=== PATIENT | male | born 1940 | race Caucasian/White ===

== ENCOUNTER 2018-11-13 13:47 | Observation (INO) ==
[2018-11-13 14:26] LABS: Basophils # 0.1 K/mcL (0.0-0.2); Basophils % 0.9 %; Eosinophils # 1.7 K/mcL (0.0-0.6); Hematocrit 33.3 % (37.5-50.1); Hemoglobin 10.8 g/dL (12.9-16.9); Immature Granulocytes % 0.2 % (0-4); Lymphocytes # 3.1 K/mcL (0.6-4.6); Lymphocytes % 25.4 %; Mean Corpuscular HGB Conc 32.4 g/dL (31.6-35.5); Mean Corpuscular Volume 95.7 fL (83.0-100.0); Monocytes # 1.7 K/mcL (0.0-1.3); Monocytes % 13.4 %; Neutrophils # 5.7 K/mcL (1.6-8.9); Platelet Count 803 K/mcL (140-400); Red Blood Count 3.48 M/mcL (4.19-5.50); Red Cell Distribution Width 14.6 % (11.5-14.5); Segmented Neutrophils % 46.1 %; White Blood Count 12.3 K/mcL (4.3-11.1)
[2018-11-13 14:36] LABS: INR 2.9; Prothrombin Time 32.7 Seconds (9.4-12.1)
[2018-11-13 14:39] LABS: Activated Partial Thrombo Time 54.1 Seconds (26.0-36.0)
[2018-11-13 14:43] LABS: Alanine Aminotransferase 17 Units/L (7-52); Albumin 3.9 g/dL (3.5-5.7); Albumin/Globulin Ratio 1.1 (1.1-2.2); Alkaline Phosphatase 45 Units/L (34-104); Aspartate Amino Transferase 28 Units/L (13-39); BUN/Creatinine Ratio 14 (6-26); Bilirubin,Direct 0.1 mg/dL (0.0-0.2); Bilirubin,Indirect 0.4 mg/dL (0.0-1.2); Bilirubin,Total 0.5 mg/dL (0.3-1.0); Blood Urea Nitrogen 17 mg/dL (8-23); Calcium 9.7 mg/dL (8.6-10.3); Carbon Dioxide 27 mEq/L (23-29); Chloride 100 mEq/L (98-107); Globulin 3.6 g/dL (2.4-3.5); Glucose 95 mg/dL (70-105); Lipase 30 Units/L (11-82); Osmolality,Calculated 283 (280-300); Sodium 136 mEq/L (136-145); Total Protein 7.5 g/dL (6.4-8.9); Troponin I 0.03 ng/mL (< 0.04); eGFR For African Americans > 60 (> 60); eGFR For Non-African Americans 57 (> 60)
--- NOTE | 2018-11-13 14:46 | Emergency Department Note ---
Disposition Clinical Impression: Chest pain Qualifiers: Chest pain type: unspecified Qualified Code(s): R07.9 - Chest pain, unspecified Disposition: Admitted As Inpatient Condition: Good Time of Disposition: 16:06 General Adult HPI - General Stated complaint: Chest Pain Time Seen by Provider: 11/13/18 13:48 Source: patient Mode of arrival: private vehicle Limitations: no limitations Nursing Notes Reviewed: Yes Vital Signs Reviewed: Yes - History of Present Illness HPI Narrative: 78-year-old male with a past medical history of 3 previous myocardial infarcti ons and a triple bypass that reports 2-3 days of chest pain that has been intermittent in nature and he describes as a heaviness. He states this is approximately 5 out of 10 in severity and is associated with some diaphoresis. He denies nausea, headache, vision changes. Patient states that he sees Dr. No at this hospital. Pain Scale: 1 - Related Data Home Medications Medication Instructions Recorded Confirmed Atorvastatin [Lipitor] 40 mg PO HS 02/20/15 08/03/15 Carvedilol [Coreg] 6.25 mg PO BID 02/20/15 08/03/15 Clopidogrel [Plavix] 75 mg PO DAILY 02/20/15 08/03/15 Furosemide [Lasix] 40 mg PO DAILY 02/20/15 08/03/15 Insulin Glargine [Lantus] 40 units SQ HS 02/20/15 08/03/15 Insulin LISPRO [Humalog] 12 - 20 unit SQ TID 02/20/15 08/03/15 Metformin [Glucophage] 1,000 mg PO BID 02/20/15 08/03/15 Omeprazole [PriLOSEC] 20 mg PO DAILY 02/20/15 08/03/15 Aspirin [Adult Low Dose Aspirin EC] 81 mg PO DAILY 07/01/15 08/03/15 Calcium Carbonate/Vitamin D3 1 each PO DAILY 07/01/15 08/03/15 [Calcium 600 + Vit D Tablet] Fenofibrate [Lofibra] 160 mg PO HS 07/01/15 08/03/15 Lisinopril 2.5 mg PO DAILY 07/01/15 08/03/15 Multivitamin [Multi-Day Vitamins] 1 each PO DAILY 07/01/15 08/03/15 [place]-3/Dha/Epa/Fish Oil [Fish Oil 3,000 mg PO DAILY 07/01/15 08/03/15 1,000 mg Softgel] Vit A/Vit C/Vit E/Zinc/Copper 1 each PO DAILY 07/01/15 08/03/15 [Preservision Areds Tablet] Previous Rx's Medication Instructions Recorded Ferrous Sulfate 325 mg PO BIDWM #60 tablet 07/30/15 Allergies Allergy/AdvReac Type Severity Reaction Status Date / Time No Known Allergies Allergy Verified 02/20/15 14:21 Review of Systems: In addition to that documented in the HPI above, the additional ROS was obtained: Constitutional: Denies fevers or chills Reports diaphoresis Eyes: Denies vision changes ENMT: Denies sore throat CV: Reports substernal chest heaviness Resp: Reports SOB GI: Denies vomiting or diarrhea, and dark or tarry stools : Denies painful urination MSK: Denies recent trauma Skin: Denies new rashes Neuro: Denies new numbness or tingling or weakness Endocrine: Denies unexpected weight loss Heme: Denies bleeding disorders Past Medical History - Past Medical History Attestation: Yes The following information was validated with the patient. Medical history: Reports: CHF, COPD, CVA, diabetes, GERD, hyperlipidemia, hypertension, myocardial infarction Surgical history: Reports: angioplasty/stent, coronary bypass (CABG), herniorrhaphy, splenectomy, other Psychiatric history: Reports: no psych history - Social History Smoking Status: Former smoker Smokeless Tobacco Status: No Alcohol use: Reports: none Drug use: Reports: none Physical Exam General: No acute distress. Well developed, well nourished. Head: atraumatic, normocephalic. ENT: No conjunctival injection, no scleral icterus. PERRLA. EOMI. Oropharynx non- erythematous. mucous membranes moist. Neuro: No focal deficits, no speech deficit, no facial droop, mentating well. Pulm: Lungs CTAB A/P. No wheezes, rales, ronchi. Cardio: RRR with systolic murmur. Chest not tender to palpation. Abd: Soft, non-distended. Normoactive bowel sounds. Non-tender to palpation. No guarding. Non rigid. Extremities: Radial pulses 2+ nadine, dorsalis pedis/posterior tibialis 1+ nadine. No LE edema. No cyanosis, clubbing. Skin: warm, dry, intact. No rashes. Psych: Appropriate mood and affect. Answers questions appropriately. Cooperative with exam. - General Limitations: no limitations General appearance: alert Course Vital Signs Temperature 98.2 F 11/13/18 13:52 Pulse Rate 87 11/13/18 13:52 Respiratory Rate 21 11/13/18 13:52 Blood Pressure 133/76 11/13/18 13:52 O2 Sat by Pulse Oximetry 94 11/13/18 13:52 Temperature 98.2 F 11/13/18 13:52 Pulse Rate 98 11/13/18 15:29 Respiratory Rate 20 11/13/18 15:29 Blood Pressure 136/77 11/13/18 15:29 O2 Sat by Pulse Oximetry 97 11/13/18 15:29 Oxygen Delivery Oxygen Delivery Room Air Medical Decision Making - MDM Narrative Medical decision making narrative: 78M with Pmhx of CAD with 3 previous MIs and CABG that presents with 3 days of chest pain that is intermittent in nature. He cannot state what alleviates or exacerbates it, but it is associated with diaphoresis, SOB. Will obtain chest pain workup to include chest x-ray, EKG, CBC, BMP, troponin. Given patient's history I suspect admission. Patient's EKG did show some changes however the comparison EKG is from 2016. El yves's initial troponin was negative, however given patient's history, age, heart score he would benefit from further workup as an inpatient. Patient was admitted to the hospitalist Dr. Richard. Patient was given an aspirin while he was in the department. Patient remained stable while he was in the department. Patient was given an opportunity to ask questions and all his concerns were addressed. Results of his workup her shared with him at bedside including any lab work or imaging. - Medical Records Medical records reviewed: Yes I reviewed the patient's medical records. - Lab Data Lab results reviewed: Yes I reviewed the patient's lab results. Result diagrams: 11/13/18 14:01 11/13/18 14:01 Lab Results 11/13/18 11/13/18 11/13/18 Range/Units 14:01 14: 14:01 WBC (4.3-11.1) K/mcL RBC (4.19-5.50) M/mcL Hgb (12.9-16.9) g/dL Hct (37.5-50.1) % MCV (83.0-100.0) fL MCH (28.0-33.3) pg MCHC (31.6-35.5) g/dL RDW (11.5-14.5) % Plt Count (140-400) K/mcL MPV (9.4-12.4) fL Immature Gran % (0-4) % Seg Neutrophils % % Lymphocytes % % Monocytes % % Eosinophils % % Basophils % % Neutrophils # (1.6-8.9) K/mcL Lymphocytes # (0.6-4.6) K/mcL Monocytes # (0.0-1.3) K/mcL Eosinophils # (0.0-0.6) K/mcL Basophils # (0.0-0.2) K/mcL PT 32.7 H (9.4-12.1) Seconds INR 2.9 APTT 54.1 H (26.0-36.0) Seconds Sodium 136 (136-145) mEq/L Potassium 4.0 (3.5-5.1) mEq/L Chloride 100 (98-107) mEq/L Carbon Dioxide 27 (23-29) mEq/L BUN 17 (8-23) mg/dL Creatinine 1.23 (0.70-1.30) mg/dL Est GFR ( Amer) > 60 (> 60) Est GFR (Non-Af Amer) 57 L (> 60) BUN/Creatinine Ratio 14 (6-26) Glucose 95 (70-105) mg/dL Calculated Osmolality 283 (280-300) Calcium 9.7 (8.6-10.3) mg/dL Total Bilirubin 0.5 (0.3-1.0) mg/dL Direct Bilirubin 0.1 (0.0-0.2) mg/dL Indirect Bilirubin 0.4 (0.0-1.2) mg/dL AST 28 (13-39) Units/L ALT 17 (7-52) Units/L Alkaline Phosphatase 45 (34-104) Units/L Troponin I 0.03 (< 0.04) ng/mL B-Natriuretic Peptide 365 H (Less than 100) pg/mL Serum Total Protein 7.5 (6.4-8.9) g/dL Albumin 3.9 (3.5-5.7) g/dL Globulin 3.6 H (2.4-3.5) g/dL Albumin/Globulin Ratio 1.1 (1.1-2.2) Lipase 30 (11-82) Units/L 11/13/18 Range/Units 14:01 WBC 12.3 H (4.3-11.1) K/mcL RBC 3.48 L (4.19-5.50) M/mcL Hgb 10.8 L (12.9-16.9) g/dL Hct 33.3 L (37.5-50.1) % MCV 95.7 (83.0-100.0) fL MCH 31.0 (28.0-33.3) pg MCHC 32.4 (31.6-35.5) g/dL RDW 14.6 H (11.5-14.5) % Plt Count 803 H (140-400) K/mcL MPV 10.0 (9.4-12.4) fL Immature Gran % 0.2 (0-4) % Seg Neutrophils % 46.1 % Lymphocytes % 25.4 % Monocytes % 13.4 % Eosinophils % 14.0 % Basophils % 0.9 % Neutrophils # 5.7 (1.6-8.9) K/mcL Lymphocytes # 3.1 (0.6-4.6) K/mcL Monocytes # 1.7 H (0.0-1.3) K/mcL Eosinophils # 1.7 H (0.0-0.6) K/mcL Basophils # 0.1 (0.0-0.2) K/mcL PT (9.4-12.1) Seconds INR APTT (26.0-36.0) Seconds Sodium (136-145) mEq/L Potassium (3.5-5.1) mEq/L Chloride (98-107) mEq/L Carbon Dioxide (23-29) mEq/L BUN (8-23) mg/dL Creatinine (0.70-1.30) mg/dL Est GFR ( Amer) (> 60) Est GFR (Non-Af Amer) (> 60) BUN/Creatinine Ratio (6-26) Glucose (70-105) mg/dL Calculated Osmolality (280-300) Calcium (8.6-10.3) mg/dL Total Bilirubin (0.3-1.0) mg/dL Direct Bilirubin (0.0-0.2) mg/dL Indirect Bilirubin (0.0-1.2) mg/dL AST (13-39) Units/L ALT (7-52) Units/L Alkaline Phosphatase (34-104) Units/L Troponin I (< 0.04) ng/mL B-Natriuretic Peptide (Less than 100) pg/mL Serum Total Protein (6.4-8.9) g/dL Albumin (3.5-5.7) g/dL Globulin (2.4-3.5) g/dL Albumin/Globulin Ratio (1.1-2.2) Lipase (11-82) Units/L - Radiology Data Radiology results reviewed: Yes I reviewed the patient's radiology results. Chest X-Ray 11/13/18 13:56 IMPRESSION: [id number] right pleural effusion and trace left pleural effusion. Mild bibasilar likely atelectasis. Stable cardiomegaly. D/ / 11/13/2018 14:13:35 Jose Alejandro Valladares MD / [facility] Interpreting Provider: Jose Alejandro Valladares MD - EKG Data EKG #1 EKG attestation: Yes I reviewed and interpreted this EKG. EKG results narrative: Heart rate 95, rhythm sinus, axis normal. He will 151, QRS 118 and borderline prolonged, QTC 497 and borderline prolonged. Less than [address] elevation in leads V2, V3. With ST depression in lead V4 and V5. These are new changes when compared with EKG from 08/30/2015. Patient meets criteria for LVH.
--- NOTE | 2018-11-13 16:12 | Emergency Department Note ---
Disposition Clinical Impression: Chest pain Qualifiers: Chest pain type: unspecified Qualified Code(s): R07.9 - Chest pain, unspecified Disposition: Admitted As Inpatient Referrals: Niles Sevilla MD [Primary Care Provider] - Time of Disposition: 16:11 General Adult HPI - General Chief complaint: ED Chest Pain Stated complaint: Chest Pain Time Seen by Provider: 11/13/18 13:48 Source: patient Mode of arrival: private vehicle Limitations: no limitations - History of Present Illness Pain Scale: 0 - Related Data Home Medications Medication Instructions Recorded Confirmed Atorvastatin [Lipitor] 40 mg PO HS 02/20/15 08/03/15 Carvedilol [Coreg] 6.25 mg PO BID 02/20/15 08/03/15 Clopidogrel [Plavix] 75 mg PO DAILY 02/20/15 08/03/15 Furosemide [Lasix] 40 mg PO DAILY 02/20/15 08/03/15 Insulin Glargine [Lantus] 40 units SQ HS 02/20/15 08/03/15 Insulin LISPRO [Humalog] 12 - 20 unit SQ TID 02/20/15 08/03/15 Metformin [Glucophage] 1,000 mg PO BID 02/20/15 08/03/15 Omeprazole [PriLOSEC] 20 mg PO DAILY 02/20/15 08/03/15 Aspirin [Adult Low Dose Aspirin EC] 81 mg PO DAILY 07/01/15 08/03/15 Calcium Carbonate/Vitamin D3 1 each PO DAILY 07/01/15 08/03/15 [Calcium 600 + Vit D Tablet] Fenofibrate [Lofibra] 160 mg PO HS 07/01/15 08/03/15 Lisinopril 2.5 mg PO DAILY 07/01/15 08/03/15 Multivitamin [Multi-Day Vitamins] 1 each PO DAILY 07/01/15 08/03/15 [place]-3/Dha/Epa/Fish Oil [Fish Oil 3,000 mg PO DAILY 07/01/15 08/03/15 1,000 mg Softgel] Vit A/Vit C/Vit E/Zinc/Copper 1 each PO DAILY 07/01/15 08/03/15 [Preservision Areds Tablet] Previous Rx's Medication Instructions Recorded Ferrous Sulfate 325 mg PO BIDWM #60 tablet 07/30/15 Allergies Allergy/AdvReac Type Severity Reaction Status Date / Time No Known Allergies Allergy Verified 02/20/15 14:21 Past Medical History - Past Medical History Medical history: Reports: CHF, COPD, CVA, diabetes, GERD, hyperlipidemia, hypertension, myocardial infarction Surgical history: Reports: angioplasty/stent, coronary bypass (CABG), herniorrhaphy, splenectomy, other Psychiatric history: Reports: no psych history - Social History Smoking Status: Former smoker Smokeless Tobacco Status: No Alcohol use: Reports: none Drug use: Reports: none Physical Exam - General Limitations: no limitations General appearance: alert Course Vital Signs Temperature 98.2 F 11/13/18 13:52 Pulse Rate 87 11/13/18 13:52 Respiratory Rate 21 11/13/18 13:52 Blood Pressure 133/76 11/13/18 13:52 O2 Sat by Pulse Oximetry 94 11/13/18 13:52 Temperature 98.2 F 11/13/18 13:52 Pulse Rate 98 11/13/18 15:29 Respiratory Rate 20 11/13/18 15:29 Blood Pressure 136/77 11/13/18 15:29 O2 Sat by Pulse Oximetry 97 11/13/18 15:29 Oxygen Delivery Oxygen Delivery Room Air Medical Decision Making - Lab Data Result diagrams: 11/13/18 14:01 11/13/18 14:01 Lab Results 11/13/18 11/13/18 11/13/18 Range/Units 14:01 14:01 14:01 WBC (4.3-11.1) K/mcL RBC (4.19-5.50) M/mcL Hgb (12.9-16.9) g/dL Hct (37.5-50.1) % MCV (83.0-100.0) fL MCH (28.0-33.3) pg MCHC (31.6-35.5) g/dL RDW (11.5-14.5) % Plt Count (140-400) K/mcL MPV (9.4-12.4) fL Immature Gran % (0-4) % Seg Neutrophils % % Lymphocytes % % Monocytes % % Eosinophils % % Basophils % % Neutrophils # (1.6-8.9) K/mcL Lymphocytes # (0.6-4.6) K/mcL Monocytes # (0.0-1.3) K/mcL Eosinophils # (0.0-0.6) K/mcL Basophils # (0.0-0.2) K/mcL PT 32.7 H (9.4-12.1) Seconds INR 2.9 APTT 54.1 H (26.0-36.0) Seconds Sodium 136 (136-145) mEq/L Potassium 4.0 (3.5-5.1) mEq/L Chloride 100 (98-107) mEq/L Carbon Dioxide 27 (23-29) mEq/L BUN 17 (8-23) mg/dL Creatinine 1.23 (0.70-1.30) mg/dL Est GFR ( Amer) > 60 (> 60) Est GFR (Non-Af Amer) 57 L (> 60) BUN/Creatinine Ratio 14 (6-26) Glucose 95 (70-105) mg/dL Calculated Osmolality 283 (280-300) Calcium 9.7 (8.6-10.3) mg/dL Total Bilirubin 0.5 (0.3-1.0) mg/dL Direct Bilirubin 0.1 (0.0-0.2) mg/dL Indirect Bilirubin 0.4 (0.0-1.2) mg/dL AST 28 (13-39) Units/L ALT 17 (7-52) Units/L Alkaline Phosphatase 45 (34-104) Units/L Troponin I 0.03 (< 0.04) ng/mL B-Natriuretic Peptide 365 H (Less than 100) pg/mL Serum Total Protein 7.5 (6.4-8.9) g/dL Albumin 3.9 (3.5-5.7) g/dL Globulin 3.6 H (2.4-3.5) g/dL Albumin/Globulin Ratio 1.1 (1.1-2.2) Lipase 30 (11-82) Units/L 11/13/18 Range/Units 14:01 WBC 12.3 H (4.3-11.1) K/mcL RBC 3.48 L (4.19-5.50) M/mcL Hgb 10.8 L (12.9-16.9) g/dL Hct 33.3 L (37.5-50.1) % MCV 95.7 (83.0-100.0) fL MCH 31.0 (28.0-33.3) pg MCHC 32.4 (31.6-35.5) g/dL RDW 14.6 H (11.5-14.5) % Plt Count 803 H (140-400) K/mcL MPV 10.0 (9.4-12.4) fL Immature Gran % 0.2 (0-4) % Seg Neutrophils % 46.1 % Lymphocytes % 25.4 % Monocytes % 13.4 % Eosinophils % 14.0 % Basophils % 0.9 % Neutrophils # 5.7 (1.6-8.9) K/mcL Lymphocytes # 3.1 (0.6-4.6) K/mcL Monocytes # 1.7 H (0.0-1.3) K/mcL Eosinophils # 1.7 H (0.0-0.6) K/mcL Basophils # 0.1 (0.0-0.2) K/mcL PT (9.4-12.1) Seconds INR APTT (26.0-36.0) Seconds Sodium (136-145) mEq/L Potassium (3.5-5.1) mEq/L Chloride (98-107) mEq/L Carbon Dioxide (23-29) mEq/L BUN (8-23) mg/dL Creatinine (0.70-1.30) mg/dL Est GFR ( Amer) (> 60) Est GFR (Non-Af Amer) (> 60) BUN/Creatinine Ratio (6-26) Glucose (70-105) mg/dL Calculated Osmolality (280-300) Calcium (8.6-10.3) mg/dL Total Bilirubin (0.3-1.0) mg/dL Direct Bilirubin (0.0-0.2) mg/dL Indirect Bilirubin (0.0-1.2) mg/dL AST (13-39) Units/L ALT (7-52) Units/L Alkaline Phosphatase (34-104) Units/L Troponin I (< 0.04) ng/mL B-Natriuretic Peptide (Less than 100) pg/mL Serum Total Protein (6.4-8.9) g/dL Albumin (3.5-5.7) g/dL Globulin (2.4-3.5) g/dL Albumin/Globulin Ratio (1.1-2.2) Lipase (11-82) Units/L Attestation Statement - Attestation Attestation: I reviewed the residents documentation and agree with the residents assessment and plan of care. I have personally had face to face time with the patient. (Brief History, Brief Exam, and MDM) I personally supervised and was present for the kaplan/critical portions of the following procedures completed by the resident: EKG 78 year old male presents ot the ED with complaints of camilo pain and has multiple stents and currently feels as though thsi is simlair to his cardiac pains int he past and is now experiencing exertional dyspnea. troponing negative, no new ishcemic changes on ekg. ASA and admit to medicine.
--- NOTE | 2018-11-13 16:18 | Internal Med History&Physical ---
<Nidia Osei - Last Filed: 11/13/18 18:53> Date of Encounter: 11/13/18 Internal Medicine - H&P: HPI History of present illness: Mr. Bridges is a 78 year old male Past Med Surg Social Fam HX - Family History Mother Hx Family Cardiac Disorders: Yes Internal Medicine - H&P: Meds Insulin LISPRO [Humalog] 12 - 20 unit SQ TID 02/20/15 [History] Lisinopril 2.5 mg PO DAILY 07/01/15 [History] [place]-3/Dha/Epa/Fish Oil [Fish Oil 1,000 mg Softgel] 2,400 mg PO QAM 07/01/15 [History] Vit A/Vit C/Vit E/Zinc/Copper [Preservision Areds Tablet] 1 each PO BID 07/01/15 [History] Aspirin [Lo-Dose Aspirin EC] 81 mg PO DAILY 11/13/18 [History] Atorvastatin Calcium [Lipitor] 80 mg PO HS 11/13/18 [History] Calcium Carbonate/Vitamin D3 [Calcium 600 + Vit D Softgel] 1 each PO BID 11/13/18 [History] Carvedilol [Coreg] 6.25 mg PO BID 11/13/18 [History] Cholecalciferol (Vitamin D3) [Vitamin D] 1,000 unit PO DAILY 11/13/18 [History] Cyanocobalamin (Vitamin B-12) [Vitamin B-12] 1,000 mcg PO DAILY 11/13/18 [History] Fenofibrate Nanocrystallized [Fenofibrate] 160 mg PO DAILY 11/13/18 [History] Ferrous Sulfate 325 mg PO BIDWM 11/13/18 [History] Furosemide [Lasix] 40 mg PO DAILY 11/13/18 [History] Insulin Glargine,Hum.rec.anlog [Basaglar Kwikpen U-100] 30 unit SQ HS 11/13/18 [History] Metformin HCl 1,000 mg PO BID 11/13/18 [History] Multivitamin [One Daily Essential] 1 tab PO DAILY 11/13/18 [History] [place]-3/Dha/Epa/Dpa/Fish Oil [[place]-3 1,050 mg Softgel] 1,200 each PO HS 11/13/18 [History] Omeprazole 40 mg PO DAILY 11/13/18 [History] Ranolazine [Ranolazine ER] 500 mg PO BID 11/13/18 [History] Warfarin [Coumadin] 2.5 mg PO Q48H 11/13/18 [History] Warfarin [Coumadin] 5 mg PO Q48H 11/13/18 [History] Allergy/AdvReac Type Severity Reaction Status Date / Time No Known Allergies Allergy Verified 11/13/18 21:44 All Systems PM: A 10-system review of systems was performed and is negative for pertinent findings except as documented above in the HPI. - Constitutional Vitals: Temp Pulse Resp BP Pulse Ox 98.2 F 90 16 145/76 93 11/13/18 18:45 11/13/18 18:45 11/13/18 18:45 11/13/18 18:45 11/13/18 18:45 Internal Med - H&P Results - Labs CBC & Chem 7: 11/13/18 14:01 11/13/18 14:01 Labs: Short CBC 11/13/18 Range/Units 14:01 WBC 12.3 H (4.3-11.1) K/mcL Hgb 10.8 L (12.9-16.9) g/dL Hct 33.3 L (37.5-50.1) % Plt Count 803 H (140-400) K/mcL Neutrophils # 5.7 (1.6-8.9) K/mcL BMP 11/13/18 14:01 Sodium 136 Potassium 4.0 Chloride 100 Carbon Dioxide 27 BUN 17 Creatinine 1.23 Glucose 95 Calcium 9.7 Cardiac Enzymes 11/13/18 Range/Units 14:01 Troponin I 0.03 (< 0.04) ng/mL Liver Function 11/13/18 Range/Units 14:01 Total Bilirubin 0.5 (0.3-1.0) mg/dL Direct Bilirubin 0.1 (0.0-0.2) mg/dL AST 28 (13-39) Units/L ALT 17 (7-52) Units/L Alkaline Phosphatase 45 (34-104) Units/L Albumin 3.9 (3.5-5.7) g/dL - Impressions ITS Impressions Chest X-Ray 11/13/18 13:56 IMPRESSION: Nmnpq-jj-jegjkual right pleural effusion and trace left pleural effusion. Mild bibasilar likely atelectasis. Stable cardiomegaly. 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 (2) Chest pain Current Visit: Yes Status: Acute Qualifiers: Chest pain type: unspecified Qualified Code(s): R07.9 - Chest pain, unspecified (3) DM2 (diabetes mellitus, type 2) Current Visit: Yes Status: Chronic Qualifiers: Diabetes mellitus senior living insulin use: unspecified senior living insulin use status Diabetes mellitus complication status: without complication Qualified Code(s): E11.9 - Type 2 diabetes mellitus without complications (4) CHF (congestive heart failure) Current Visit: Yes Status: Chronic Qualifiers: Heart failure type: unspecified Heart failure chronicity: chronic Qualified Code(s): I50.9 - Heart failure, unspecified (5) HLD (hyperlipidemia) Current Visit: Yes Status: Chronic Qualifiers: Hyperlipidemia type: unspecified Qualified Code(s): E78.5 - Hyperlipidemia, unspecified (6) GERD (gastroesophageal reflux disease) Current Visit: Yes Status: Chronic Qualifiers: Esophagitis presence: esophagitis presence not specified Qualified Code(s): K21.9 - Gastro-esophageal reflux disease without esophagitis (7) Hx of deep venous thrombosis Current Visit: Yes Status: Chronic (8) DVT prophylaxis Current Visit: Yes Status: Acute (9) Leukocytosis Current Visit: Yes Status: Acute Qualifiers: Leukocytosis type: unspecified Qualified Code(s): D72.829 - Elevated white blood cell count, unspecified - Time Spent With Patient Total time spent is greater than 50% in coordination of care (as documented) at patient's floor/unit and/or counseling patient: - Attending Attestation I saw evaluated and examined this patient and reviewed objective data including labs and my medical decision-making was reviewed with the Resident Physician/Medical Student. I agree with the documented findings, disposition and treatment plan as described except to any changes set forth below. We independently had ejtf-ds-bpxq contact with the patient. <Hima Champion - Last Filed: 11/13/18 22:52> Date of Encounter: 11/13/18 Time of Encounter: 17:00 Internal Medicine - H&P: HPI Chief complaint: chest pain Admitted From: Home History of present illness: Mr. Bridges is a 78 year old male with PMH of CAD s/p CABG and stents, CHF, hx of DVTs on Coumadin, GERD, HLD, and HTN. He presented to the [facility] ED today complaining of intermittent chest pain of 2 days duration. States the rendon is a dull pressure and is located in 3 separate locations on his chest without radiation of the pain. States the pressure is most intense in the mid-sternum, but is also in the right upper chest, and lateral left chest. Unable to identify exacerbating or relieving factors. Denies any shortness of breath, fever, chills, cough, or increased congestion. Pt's is at bedside and does report the patient has significant diaphoresis whenever he sleeps. Pt does then admit there was a night within the last two weeks where he woke up and was genuinely concerned his threw a bucket of water on him due to the intense diaphoresis. He denies any nausea, or vomiting. Vital signs on presentation in the ED as follows: Temp 98.2 HR 87 RR 21 BP 133/76 SpO2 94% on room air Labs from the ED were significant for slight leukocytosis with WBC 12.3, Hgb 10.8, platelets 803K, INR 2.9, and BNP elevated at 365. Initial troponin was 0.03. An EKG demonstrated less than [address] elevation in leads V2, V3, with ST depression in lead V4 and V5, and LVH. These are new changes when compared with EKG from 08/30/2015 which is the most recent EKG on record at our facility. CXR from the ED demonstrated a jdlus-gi-zjsygmuc right pleural effusion and trace left pleural effusion, mild bibasilar likely atelectasis, and stable cardiomegaly. Due to the patient's cardiac history, the patient was admitted for further evaluation and workup of his chest pain. Past Med Surg Social Fam HX - Past Medical History Attestation: Yes The following information was validated with the patient. Source: patient, old records reviewed, nursing notes reviewed Medical history: CHF, COPD, CVA, DVT, diabetes, GERD, hyperlipidemia, hypertension, myocardial infarction Psychiatric history: no psych history - Past Surgical History Surgical History: angioplasty/stent, coronary bypass (CABG), herniorrhaphy, splenectomy, other Additional surgical history: Rt carpal tunnel release - Social History Smoking Status: Former smoker Smokeless Tobacco Status: No Alcohol use: none Drug use: none All Systems PM: A 10-system review of systems was performed and is negative for pertinent findings except as documented above in the HPI. - Constitutional Constitutional: night sweats, no chills, no fever(s) - EENT Eyes: no blurry vision, no change in vision Nose, mouth and throat: no sinus pain, no sinus pressure - Cardiovascular Cardiovascular ROS IM: chest pain, no dyspnea, no dyspnea on exertion - Respiratory Respiratory: no dyspnea, no wheezing, no chest congestion, no excessive phlegm production - Gastrointestinal Gastrointestinal: no abdominal pain, no nausea, no vomiting - Musculoskeletal Musculoskeletal ROS IM: no arthralgias, no myalgias, no numbness, no tingling - Integumentary Integumentary IM: no erythema, no new lesions - Neurological Neurological ROS: no confusion, no numbness, no tingling, no weakness - Hematologic/Lymphatic Hematologic/Lymphatic: no easy bleeding, no easy bruising - Constitutional Vitals: Temp Pulse Resp BP Pulse Ox 98.2 F 98 20 136/77 97 11/13/18 13:52 11/13/18 15:29 11/13/18 15:29 11/13/18 15:29 11/13/18 15:29 General appearance: Present: cooperative, A&O X 3, pleasant, no acute distress, answers questions appropriately Exam: General: well developed male in no acute distress Head: NCAT Eyes: PERRL, EOMI, sclera anicteric Neck: supple, trachea midline Lungs: CTA bilaterally. Non-labored breathing. No wheezes, rales, or rhonchi Heart: RRR +S1 +s2 No clicks, murmurs, rubs, or gallops GI: abdomen soft, non-tender, non-distended Extremities: warm, radial pulses palpable and symmetrical. No edema, cynosis, or calf tenderness. Neuro: A&Ox3. No focal deficits. No speech difficulty or abnormality Skin: warm, dry, intact. No diaphoresis. Internal Med - H&P Results - Labs CBC & Chem 7: 11/13/18 14:01 11/13/18 14:01 Labs: Short CBC 11/13/18 Range/Units 14:01 WBC 12.3 H (4.3-11.1) K/mcL Hgb 10.8 L (12.9-16.9) g/dL Hct 33.3 L (37.5-50.1) % Plt Count 803 H (140-400) K/mcL Neutrophils # 5.7 (1.6-8.9) K/mcL BMP 11/13/18 14:01 Sodium 136 Potassium 4.0 Chloride 100 Carbon Dioxide 27 BUN 17 Creatinine 1.23 Glucose 95 Calcium 9.7 Cardiac Enzymes 11/13/18 Range/Units 14:01 Troponin I 0.03 (< 0.04) ng/mL Liver Function 11/13/18 Range/Units 14:01 Total Bilirubin 0.5 (0.3-1.0) mg/dL Direct Bilirubin 0.1 (0.0-0.2) mg/dL AST 28 (13-39) Units/L ALT 17 (7-52) Units/L Alkaline Phosphatase 45 (34-104) Units/L Albumin 3.9 (3.5-5.7) g/dL - EKG Data -: EKG Interpreted by Myself EKG shows normal: sinus rhythm - EKG Data Prior EKG available for review: yes When compared to previous EKG: there are significant changes - Impressions ITS Impressions Chest X-Ray 11/13/18 13:56 IMPRESSION: Wcfhn-wa-jqdkncvy right pleural effusion and trace left pleural effusion. Mild bibasilar likely atelectasis. Stable cardiomegaly. D/ / 11/13/2018 14:13:35 Jose Alejandro Valladares MD / [facility] Interpreting Provider: Jose Alejandro Valladares MD - Assessment and Plan (1) Chest pain Current Visit: Yes Status: Acute Assessment and plan: Presented with complaints of intermittent chest pressure Hx of CAD and is s/p stents and CABG EKG from the ED demonstrated non-specific changes when compared to previous EKG from 2016 CXR from the ED showed daybi-ea-gdznwvll right pleural effusion and trace left pleural effusion, mild bibasilar likely atelectasis, and stable cardiomegaly. Initial troponin 0.03 Heart score of 6 which is suggestive of risk of MACE 12-16.6% in 6 weeks Plan: Trend troponins Obtain echocardiogram Obtain nuclear stress test Repeat EKG in the AM Continue ASA, statin, and Coreg Also continue home Ranolazine Consider cardiology consult for abnormal results. Pt has followed with Dr No in [place] previously Qualifiers: Chest pain type: unspecified Qualified Code(s): R07.9 - Chest pain, unspecified (2) Leukocytosis Current Visit: Yes Status: Acute Assessment and plan: Mild leukocytosis with WBC of 12.3 from labs in ED Low suspicion of infectious etiology at this time given history and clinical picture, but will continue to monitor Qualifiers: Leukocytosis type: unspecified Qualified Code(s): D72.829 - Elevated white blood cell count, unspecified (3) Thrombocytosis after splenectomy Current Visit: Yes Status: Chronic Assessment and plan: Platelets of 803K on labs from ED On review of patient's chart this appears chronic in nature with elevated platelets of 520K as far back as 05/19/2014 Continue to monitor (4) DM2 (diabetes mellitus, type 2) Current Visit: Yes Status: Chronic Assessment and plan: Hx of DM2 On insulin at home Blood glucose of 95 on BMP from the ED SSI ACHS with accuchecks Continue home dose of basal insulin at this time Continue to monitor Qualifiers: Diabetes mellitus senior living insulin use: unspecified watermelon inspector insulin use status Diabetes mellitus complication status: without complication Qualified Code(s): E11.9 - Type 2 diabetes mellitus without complications (5) CHF (congestive heart failure) Current Visit: Yes Status: Chronic Assessment and plan: Does not appear to be in acute exacerbation Continue to monitor fluid status Continue home Lasix Qualifiers: Heart failure type: unspecified Heart failure chronicity: chronic Qualified Code(s): I50.9 - Heart failure, unspecified (6) HLD (hyperlipidemia) Current Visit: Yes Status: Chronic Assessment and plan: continue home statin Qualifiers: Hyperlipidemia type: unspecified Qualified Code(s): E78.5 - Hyperlipidemia, unspecified (7) GERD (gastroesophageal reflux disease) Current Visit: Yes Status: Chronic Assessment and plan: Continue home Omeprazole Qualifiers: Esophagitis presence: esophagitis presence not specified Qualified Code(s): K21.9 - Gastro-esophageal reflux disease without esophagitis (8) Hx of deep venous thrombosis Current Visit: Yes Status: Chronic Assessment and plan: On Coumadin at home INR from the ED was 2.9 Continue Coumadin with pharmacy assistance with dosing (9) DVT prophylaxis Current Visit: Yes Status: Acute Assessment and plan: coumadin as above - Time Spent With Patient Total time spent is greater than 50% in coordination of care (as documented) at patient's floor/unit and/or counseling patient:
[2018-11-13] MEDS: Aspirin 325 MG TABLET PO ONE ×2 (16:48→16:49)
[2018-11-13] MEDS ORDERED: Naloxone 0.4 MG/ML INJ IVP PRN (16:57)
[2018-11-13] MEDS ORDERED: *HR* Dextrose 50 % in Water (Syg) 50 ML SYRINGE IVP PRN (16:59)
[2018-11-13] MEDS ORDERED: D5% in Water 1,000 ML IVC PRN (16:59)
[2018-11-13] MEDS ORDERED: Dextrose Gel 15 GM/37.5 ML TUBE PO PRN ×2 (16:59)
[2018-11-13] MEDS ORDERED: *HR* Warfarin 5 MG TABLET PO ONE (18:00)
[2018-11-13] MEDS ORDERED: Warfarin perPT PO PRN (18:00)
[2018-11-13] MEDS: Insulin LISPRO 300 UNITS/3 ML VIAL SQ SCH (20:55)
[2018-11-13] MEDS ORDERED: Insulin DETEMIR 100 UNIT/ML X5UNITS SQ SCH (21:00)
[2018-11-13] MEDS ORDERED: Perflutren Lipid Microsphere 1.3 ML in 0.9 % Sodium Chloride 8.7 ML IVP ONE (21:03)
[2018-11-13] MEDS: Insulin DETEMIR 100 UNIT/ML X5UNITS SQ SCH (22:51)
[2018-11-14 02:55] LABS: Basophils # 0.1 K/mcL (0.0-0.2); Basophils % 1.1 %; Eosinophils % 16.7 %; Hematocrit 32.4 % (37.5-50.1); Hemoglobin 10.8 g/dL (12.9-16.9); Immature Granulocytes % 0.4 % (0-4); Lymphocytes # 2.9 K/mcL (0.6-4.6); Lymphocytes % 24.4 %; Mean Corpuscular HGB Conc 33.3 g/dL (31.6-35.5); Mean Corpuscular Volume 93.1 fL (83.0-100.0); Mean Platelet Volume 9.8 fL (9.4-12.4); Monocytes # 1.5 K/mcL (0.0-1.3); Monocytes % 12.3 %; Neutrophils # 5.4 K/mcL (1.6-8.9); Platelet Count 838 K/mcL (140-400); Red Blood Count 3.48 M/mcL (4.19-5.50); Red Cell Distribution Width 14.6 % (11.5-14.5); Segmented Neutrophils % 45.1 %
[2018-11-14 03:02] LABS: INR 3.1; Prothrombin Time 34.8 Seconds (9.4-12.1)
[2018-11-14 03:12] LABS: BUN/Creatinine Ratio 13 (6-26); Blood Urea Nitrogen 17 mg/dL (8-23); Calcium 9.6 mg/dL (8.6-10.3); Carbon Dioxide 26 mEq/L (23-29); Chloride 101 mEq/L (98-107); Glucose 111 mg/dL (70-105); Magnesium 1.6 mg/dL (1.6-2.6); Osmolality,Calculated 282 (280-300); Phosphorous 3.5 mg/dL (2.7-4.5); Potassium 3.8 mEq/L (3.5-5.1); Sodium 135 mEq/L (136-145); eGFR For African Americans > 60 (> 60); eGFR For Non-African Americans 54 (> 60)
[2018-11-14] MEDS ORDERED: Regadenoson 0.4 MG/5 ML SYRINGE IVP ONE (06:01)
--- NOTE | 2018-11-14 08:57 | Internal Med Progress Note ---
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 Current Visit: Yes Status: Chronic (2) Chest pain Current Visit: Yes Status: Acute (3) DM2 (diabetes mellitus, type 2) Current Visit: Yes Status: Chronic (4) CHF (congestive heart failure) Current Visit: Yes Status: Chronic (5) HLD (hyperlipidemia) Current Visit: Yes Status: Chronic (6) GERD (gastroesophageal reflux disease) Current Visit: Yes Status: Chronic (7) Hx of deep venous thrombosis Current Visit: Yes Status: Chronic (8) DVT prophylaxis Current Visit: Yes Status: Acute (9) Leukocytosis Current Visit: Yes Status: Acute - Time Spent with Patient Total time spent is greater than 50% in coordination of care (as documented) at patient's floor/unit and/or counseling patient: Internal Medicine: Result - Labs CBC & Chem 7: 11/14/18 02:28 11/14/18 02:28 Labs: Short CBC 11/14/18 Range/Units 02:28 WBC 12.0 H (4.3-11.1) K/mcL Hgb 10.8 L (12.9-16.9) g/dL Hct 32.4 L (37.5-50.1) % Plt Count 838 H (140-400) K/mcL Neutrophils # 5.4 (1.6-8.9) K/mcL BMP 11/13/18 11/14/18 14:01 02:28 Sodium 136 135 L Potassium 4.0 3.8 Chloride 100 101 Carbon Dioxide 27 26 BUN 17 17 Creatinine 1.23 1.29 Glucose 95 111 H Calcium 9.7 9.6 Cardiac Enzymes 11/13/18 11/13/18 11/14/18 Range/Units 14:01 21:38 02:28 Troponin I 0.03 0.03 0.03 (< 0.04) ng/mL Liver Function 11/13/18 Range/Units 14:01 Total Bilirubin 0.5 (0.3-1.0) mg/dL Direct Bilirubin 0.1 (0.0-0.2) mg/dL AST 28 (13-39) Units/L ALT 17 (7-52) Units/L Alkaline Phosphatase 45 (34-104) Units/L Albumin 3.9 (3.5-5.7) g/dL - ABG Interpretation ABG results: PT/INR, D-dimer PT 34.8 Seconds (9.4-12.1) H 11/14/18 02:28 - Impressions Impressions Chest X-Ray 11/13/18 13:56 IMPRESSION: Uqxzu-nw-eubwsrbd right pleural effusion and trace left pleural effusion. Mild bibasilar likely atelectasis. Stable cardiomegaly. D/ / 11/13/2018 14:13:35 Jose Alejandro Valladares MD / [facility] Interpreting Provider: Jose Alejandro Valladares MD Consult Discharge Plan - Plan Referrals: Niles Sevilla MD [Primary Care Provider] - - Attending Attestation I saw evaluated and examined this patient and reviewed objective data including labs and my medical decision-making was reviewed with the Resident Ph ysician/Medical Student. I agree with the documented findings, disposition and treatment plan as described except to any changes set forth below. We independently had eiph-uo-paly contact with the patient. No acute events overnight. Denies any CP, SOB, palpitations, diaphoresis at this time. VS: reviewed. Labs; reviewed, troponin unchanged. Patient completed Echocardiogram yesterday and Nuc stress today, results pending. <Sallie Campos - Last Filed: 11/14/18 16:22> Hospitalist Progress Note - Encounter Date of Encounter: 11/14/18 Time of Encounter: 10:00 - Subjective Interval History: Kristine Bridges is a 78-year-old male initially presented with chest pain Patient seen and examined at bedside today. He is states he is doing much better. He states that he has not had any chest pain since yesterday. He d enies any shortness of breath, cough, congestion, abdominal pain, nausea, vomiting, diarrhea, weakness. - Exam Vitals: Temp Pulse Resp BP Pulse Ox 98.7 F 85 19 149/84 92 11/14/18 06:51 11/14/18 06:51 11/14/18 06:51 11/14/18 06:51 11/14/18 06:51 Exam: General: AAO 3, no acute distress, answers questions appropriately Head: normocephalic, atraumatic Eyes: MIKI, no icterus Cardio: RRR, no murmurs, rubs, or gallops Respiratory: CTAB, no wheezing, rhonchi, rales Abd: normal bowel sounds, no guarding or rigidity Extremities: no pedal edema, pulses equal bilaterally, warm Skin: warm, dry, intact - Assessment and Plan (1) Chest pain Current Visit: Yes Status: Acute Assessment and Plan: Patient presented with intermittent chest pain EKG in ED showed nonspecific changes compared to EKG from 2016 Chest x-ray showed small to moderate right pleural effusion and trace left pleural effusion, mild bibasilar atelectasis and stable cardiomegaly Initial troponin 0.03 Heart score 6 suggested risk of MACE 12-16.6% in 6 weeks Echocardiogram showed LVEF of 35%, severely dilated left ventricle, global left ventricular systolic dysfunction with regional variations, atypical septal motion consistent with postoperative status, mild left ventricular diastolic dysfunction, no LV thrombus, right ventricular size not well evaluated, function appears mildly reduced, moderate calcified aortic leaflets, mild aortic stenosis by Doppler, severity of AMS possibly underestimated due to LV systolic dysfunction, mild mitral regurgitation, mild tricuspid regurgitation, mild pulmonary hypertension, small to moderate pericardial effusion localized around the right atrium with no tamponad Nuclear stress test showed nondiagnostic for ischemia due to baseline nonspecific ST and T changes, gated EF of 30%, medium sized, moderate intensity, fixed inferior and inferolateral perfusion defect suggestive of a prior infarct, perfusion imaging was negative for ischemia Continue aspirin, statin, Coreg Cardiology has been consulted Nothing by mouth after midnight for any further intervention (2) Thrombocytosis after splenectomy Current Visit: Yes Status: Chronic Assessment and Plan: Patient's platelets 803 on draw from ED Patient has chronic elevation of platelets Continue to monitor (3) DM2 (diabetes mellitus, type 2) Current Visit: Yes Status: Chronic Assessment and Plan: History of type 2 diabetes On insulin at home Sliding scale insulin with Accu-Cheks Continue home dose of basal insulin Continue to monitor (4) CHF (congestive heart failure) Current Visit: Yes Status: Chronic Assessment and Plan: History of CHF not currently in exacerbation Echo and stress test as above Continue home Lasix (5) HLD (hyperlipidemia) Current Visit: Yes Status: Chronic Assessment and Plan: Continue home statin medication (6) GERD (gastroesophageal reflux disease) Current Visit: Yes Status: Chronic Assessment and Plan: Continue home omeprazole (7) Hx of deep venous thrombosis Current Visit: Yes Status: Chronic Assessment and Plan: Patient is currently on Coumadin Continue Coumadin with pharmacy to dose (8) Leukocytosis Current Visit: Yes Status: Acute Assessment and Plan: Mild leukocytosis of 12.3 in the ED, on today's labs 12.0 Low suspicion for infectious etiology Continue to monitor DVT Prophylaxis: coumadin - Time Spent with Patient Total time spent is greater than 50% in coordination of care (as documented) at patient's floor/unit and/or counseling patient: Internal Medicine: Result - Labs CBC & Chem 7: 11/14/18 02:28 11/14/18 02:28 Labs: Short CBC 11/13/18 11/14/18 Range/Units 14:01 02:28 WBC 12.3 H 12.0 H (4.3-11.1) K/mcL Hgb 10.8 L 10.8 L (12.9-16.9) g/dL Hct 33.3 L 32.4 L (37.5-50.1) % Plt Count 803 H 838 H (140-400) K/mcL Neutrophils # 5.7 5.4 (1.6-8.9) K/mcL BMP 11/13/18 11/14/18 14:01 02:28 Sodium 136 135 L Potassium 4.0 3.8 Chloride 100 101 Carbon Dioxide 27 26 BUN 17 17 Creatinine 1.23 1.29 Glucose 95 111 H Calcium 9.7 9.6 Cardiac Enzymes 11/13/18 11/13/18 11/14/18 Range/Units 14:01 21:38 02:28 Troponin I 0.03 0.03 0.03 (< 0.04) ng/mL Liver Function 11/13/18 Range/Units 14:01 Total Bilirubin 0.5 (0.3-1.0) mg/dL Direct Bilirubin 0.1 (0.0-0.2) mg/dL AST 28 (13-39) Units/L ALT 17 (7-52) Units/L Alkaline Phosphatase 45 (34-104) Units/L Albumin 3.9 (3.5-5.7) g/dL - ABG Interpretation ABG results: PT/INR, D-dimer PT 34.8 Seconds (9.4-12.1) H 11/14/18 02:28 - Impressions Impressions Chest X-Ray 11/13/18 13:56 IMPRESSION: Skurv-rh-xovhdogk right pleural effusion and trace left pleural effusion. Mild bibasilar likely atelectasis. Stable cardiomegaly. D/ / 11/13/2018 14:13:35 Jose Alejandro Valladares MD / [facility] Interpreting Provider: Jose Alejandro Valladares MD <Nidia Osei - Last Filed: 11/14/18 14:28> (2) Chest pain Qualifiers: Chest pain type: unspecified Qualified Code(s): R07.9 - Chest pain, unspecified (3) DM2 (diabetes mellitus, type 2) Qualifiers: Diabetes mellitus termite renewal inspector insulin use: unspecified termite renewal inspector insulin use status Diabetes mellitus complication status: without complication Qualified Code(s): E11.9 - Type 2 diabetes mellitus without complications (4) CHF (congestive heart failure) Qualifiers: Heart failure type: unspecified Heart failure chronicity: chronic Qualified Code(s): I50.9 - Heart failure, unspecified (5) HLD (hyperlipidemia) Qualifiers: Hyperlipidemia type: unspecified Qualified Code(s): E78.5 - Hyperlipidemia, unspecified (6) GERD (gastroesophageal reflux disease) Qualifiers: Esophagitis presence: esophagitis presence not specified Qualified Code(s): K21.9 - Gastro-esophageal reflux disease without esophagitis (9) Leukocytosis Qualifiers: Leukocytosis type: unspecified Qualified Code(s): D72.829 - Elevated white blood cell count, unspecified <Sallie Campos - Last Filed: 11/14/18 16:22> (1) Chest pain Qualifiers: Chest pain type: unspecified Qualified Code(s): R07.9 - Chest pain, unspecified (3) DM2 (diabetes mellitus, type 2) Qualifiers: Diabetes mellitus termite renewal inspector insulin use: unspecified group home insulin use status Diabetes mellitus complication status: without complication Qualified Code(s): E11.9 - Type 2 diabetes mellitus without complications (4) CHF (congestive heart failure) Qualifiers: Heart failure type: unspecified Heart failure chronicity: chronic Qualified Code(s): I50.9 - Heart failure, unspecified (5) HLD (hyperlipidemia) Qualifiers: Hyperlipidemia type: unspecified Qualified Code(s): E78.5 - Hyperlipidemia, unspecified (6) GERD (gastroesophageal reflux disease) Qualifiers: Esophagitis presence: esophagitis presence not specified Qualified Code(s): K21.9 - Gastro-esophageal reflux disease without esophagitis (8) Leukocytosis Qualifiers: Leukocytosis type: unspecified Qualified Code(s): D72.829 - Elevated white blood cell count, unspecified
[2018-11-14] MEDS: Insulin LISPRO 300 UNITS/3 ML VIAL SQ SCH ×4 (09:19→21:08)
[2018-11-14] MEDS: Furosemide 40 MG TABLET PO SCH (09:26)
[2018-11-14] MEDS: Ranolazine 500 MG TAB.ER.12H PO SCH ×2 (09:26→21:08)
[2018-11-14] MEDS: Aspirin Enteric Coated 81 MG Tablet PO SCH (09:26)
--- NOTE | 2018-11-14 17:46 | Electrocardiograph Report ---
[place] [id number] Test Date: 2018-11-13 Pat Name: Calvin Bridges Department: EXAM2 Room: 3B16 Gender: M Pre Parole Counseling Aide: : 1940 Requested By: Jasmyn Lowry Order Number: [id number] Reading MD: Monet Last Measurements Intervals [place] Rate: 95 P: 56 [place]: 151 QRS: -9 QRSD: 118 T: 118 QT: 395 QTc: 497 Interpretive Statements Sinus rhythm Probable left atrial enlargement Nonspecific intraventricular conduction delay Nonspecific T abnormalities, lateral leads Electronically Signed On 11-14-2018 17:45:03 EDT by Monet Last
[2018-11-14] MEDS ORDERED: *HR* Warfarin 2.5 MG TABLET PO ONE (18:00)
[2018-11-14] MEDS ORDERED: *HR* Warfarin 5 MG TABLET PO ONE (18:15)
[2018-11-14] MEDS ORDERED: Insulin DETEMIR 100 UNIT/ML X5UNITS SQ SCH (21:00)
[2018-11-14] MEDS: Insulin DETEMIR 100 UNIT/ML X5UNITS SQ SCH (21:06)
[2018-11-15] MEDS: Insulin LISPRO 300 UNITS/3 ML VIAL SQ SCH ×2 (07:48→11:35)
--- NOTE | 2018-11-15 08:28 | Internal Med Progress Note ---
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 (2) Chest pain Current Visit: Yes Status: Acute (3) DM2 (diabetes mellitus, type 2) Current Visit: Yes Status: Chronic (4) CHF (congestive heart failure) Current Visit: Yes Status: Chronic (5) HLD (hyperlipidemia) Current Visit: Yes Status: Chronic (6) GERD (gastroesophageal reflux disease) Current Visit: Yes Status: Chronic (7) Hx of deep venous thrombosis Current Visit: Yes Status: Chronic (8) DVT prophylaxis Current Visit: Yes Status: Acute (9) Leukocytosis Current Visit: Yes Status: Acute - Time Spent with Patient Total time spent is greater than 50% in coordination of care (as documented) at patient's floor/unit and/or counseling patient: Internal Medicine: Result - Labs CBC & Chem 7: 11/14/18 02:28 11/14/18 02:28 - ABG Interpretation ABG results: PT/INR, D-dimer PT 34.8 Seconds (9.4-12.1) H 11/14/18 02:28 - Impressions Impressions Echocardiogram 11/13/18 17:26 Impressions: LVEF 35%. Severely dilated left ventricle. Global left ventricular systolic dysfunction with regional variations. Atypical septal motion consistent with post-operative status. Mild left ventricular diastolic dysfunction. There is no LV thrombus. Right ventricular size was not well evaluated. Function appears mildly reduced. Moderately calcified aortic valve leaflets. Mild aortic stenosis by Doppler. Severity of possibly underestimated due to LV systolic dysfunction. Mild mitral regurgitation. Mild tricuspid regurgitation. Mild pulmonary hypertension. There is a small to moderate pericardial effusion localized around the right atrium. No tamponade. Left Ventricular Wall Motion: Rest Echo Findings The apex, apical inferior, mid inferior, basal inferior, apical anterior, mid anterior, basal anterior, apical septal, mid inferior septal, basal inferior septal, apical lateral, mid anterior lateral, basal anterior lateral, mid anterior septal, mid inferior lateral, basal anterior septal and basal inferior lateral norris were hypokinetic. Findings: Study Quality * Technically sub-optimal due to poor echocardiographic windows. ECG Findings * Normal sinus rhythm. Left Ventricle * LVEF 35%. * Severely dilated left ventricle. * Gllobal left ventricular systolic dysfunction with regional variations. * Atypical septal motion consistent with post-operative status. * Mild left ventricular diastolic dysfunction. * There is no LV thrombus. Right Ventricle * Right ventricular size was not well evaluated. Function appears mildly reduced. Left Atrium * Mildly dilated left atrium. Right Atrium * Normal right atrial size. Interatrial Septum * Interatrial septum not well evaluated. Aortic Valve * Moderately calcified aortic valve leaflets. * Trace aortic regurgitation. * Mild aortic stenosis by Doppler. Severity of possibly underestimated due to LV systolic dysfunction. Mitral Valve * Mild mitral annular calcification * Mildly thickened mitral valve leaflets. * Mild mitral regurgitation. * No mitral stenosis. Tricuspid Valve * Normal tricuspid valve structure. * Mild tricuspid regurgitation. * Mild pulmonary hypertension. Pulmonic Valve * Pulmonic valve not well visualized. Aorta * Normally sized aortic root. Pericardium * There is a small to moderate pericardial effusion localized around the right atrium. No tamponade. IVC * Normal IVC dimensions and inspiratory collapse. Pulmonary Artery * Pulmonary artery not well visualized. Consult Discharge Plan - Plan Referrals: Niles Sevilla MD [Primary Care Provider] - (2) Chest pain Qualifiers: Chest pain type: unspecified Qualified Code(s): R07.9 - Chest pain, unspecified (3) DM2 (diabetes mellitus, type 2) Qualifiers: Diabetes mellitus buttermaker helper insulin use: unspecified residential insulin use status Diabetes mellitus complication status: without complication Qualified Code(s): E11.9 - Type 2 diabetes mellitus without complications (4) CHF (congestive heart failure) Qualifiers: Heart failure type: unspecified Heart failure chronicity: chronic Qualified Code(s): I50.9 - Heart failure, unspecified (5) HLD (hyperlipidemia) Qualifiers: Hyperlipidemia type: unspecified Qualified Code(s): E78.5 - Hyperlipidemia, unspecified (6) GERD (gastroesophageal reflux disease) Qualifiers: Esophagitis presence: esophagitis presence not specified Qualified Code(s): K21.9 - Gastro-esophageal reflux disease without esophagitis (9) Leukocytosis Qualifiers: Leukocytosis type: unspecified Qualified Code(s): D72.829 - Elevated white blood cell count, unspecified
[2018-11-15] MEDS: Aspirin Enteric Coated 81 MG Tablet PO SCH (08:38)
[2018-11-15] MEDS: Ranolazine 500 MG TAB.ER.12H PO SCH (08:38)
[2018-11-15] MEDS: Furosemide 40 MG TABLET PO SCH (08:38)
--- NOTE | 2018-11-15 10:36 | Cardiology Consult Note ---
<Rodger Lyman R - Last Filed: 11/15/18 10:33> Date of Encounter: 11/15/18 Time of Encounter: 10:33 Assessment and Plan (1) Chest pain Current Visit: Yes Status: Acute Reports intermittent chest pain for 5-6 days described as tightness, o ccasionally radiating to left shoulder area. Unable to identify exacerbating or relieving factors. Reports exertional dyspnea. Last episode of chest tightness yesterday morning. Reports different from prior anginal equivalent, which was left shoulder and neck pain. Troponin negative. TTE revealed EF 35%, global LV dysfunction. Mild , mild-moderate pericardial effusion, no tamponade. Nuclear stress test evidence of prior infarct, negative for ischemia. Gated EF 30%. Cardiology consulted for further recs. Prior TTE located in [facility] in 2012 EF was 45-50%. Has followed at [facility]. Discussed and reviewed with Dr. Last and Dr. No (his former [facility] planning and analysis manager). Given unclear chronicity of reduced EF and stress test negative for ischemia, recommend medical management with close outpt follow-up. Will increase Ranexa to 1000mg BID. Continue ASA, Statin, BB. Add ACEi. Qualifiers: Chest pain type: unspecified Qualified Code(s): R07.9 - Chest pain, unspecified (2) CAD (coronary artery disease) Current Visit: Yes Status: Acute Hx CABG and PCI. ASA, Statin, BB, Ranexa, ACEi. Qualifiers: Coronary Disease-Associated Artery/Lesion type: [place] artery [place] vs. transplanted heart: [place] heart Associated angina: angina presence unspecified Qualified Code(s): I25.10 - Atherosclerotic heart disease of [place] coronary artery without angina pectoris (3) Cardiomyopathy Current Visit: Yes Status: Acute Suspect ICMP given CAD hx. TTE revealed EF 35%, globacl. Nuclear stress test evidence of prior infarct, negative for ischemia. Gated EF 30%. Prior TTE located in [facility] in 2012 EF was 45-50%. Has followed at [facility]. Continue BB. Add ACEi. Qualifiers: Cardiomyopathy type: ischemic Qualified Code(s): I25.5 - Ischemic car diomyopathy (4) Pericardial effusion Current Visit: Yes Status: Acute TTE 11/14/18 There is a small to moderate pericardial effusion localized around the right atrium. No tamponade. Plan to recheck limited TTE in 1 week outpt to re-evaluate. Discussion w patient/family: The assessment and plan as outlined above was discussed with the patient and/or family members who expressed understanding and agreement. All questions were answered. Thank you for involving us in the care of your patient. Please call with any questions. I will discuss all the above with Dr. Last and make changes as necessary. History of Present Illness Consult date: 11/15/18 Consult reason: CMP, chest pain Chief complaint: chest tightness History of present illness: Mr. Bridges is a 78 year old male with PMH of CAD s/p CABG and stents, CHF, hx of DVTs on Coumadin, GERD, HLD, and HTN. He presented to the [facility] ED today complaining of intermittent chest pain for 5-6 days described as tightness, occasionally radiating to left shoulder area. Unable to identify exacerbating or relieving factors. Reports exertional dyspnea. Last episode of chest tightness yesterday morning. Reports different from prior anginal equivalent, which was left shoulder and neck pain. Troponin negative. TTE revealed EF 35%. Nuclear stress test evidence of prior infarct, negative for ischemia. Gated EF 30%. Cardiology consulted for further recs. Prior TTE located in [facility] in 2012 EF was 45-50%. Has followed at [facility]. TTE 11/14/18: LVEF 35%. Severely dilated left ventricle. Global left ventricular systolic dysfunction with regional variations. Atypical septal motion consistent with post-operative status. Mild LVDD. There is no LV thrombus. RV size was not well evaluated. Function appears mildly reduced. Moderately calcified aortic valve leaflets. Mild aortic stenosis by Doppler. Severity of possibly underestimated due to LV systolic dysfunction. Mild MR. Mild TR. Mild pulmonary hypertension. There is a small to moderate pericardial effusion localized around the right atrium. No tamponade. Nuclear stress test 11/14/18: Gated EF 30%. Medium sized, moderate intensity, fixed inferior and inferolateral perfusion defect suggestive of a prior infarct. Perfusion imaging was negative for ischemia. Past Med Surg Social Fam HX - Past Medical History Medical history: cardiomyopathy, CHF, COPD, coronary artery disease, CVA, DVT, diabetes, GERD, hyperlipidemia, hypertension, myocardial infarction Psychiatric history: no psych history - Past Surgical History Surgical History: angioplasty/stent, coronary bypass (CABG), herniorrhaphy, splenectomy, other Additional surgical history: Rt carpal tunnel release - Social History Smoking Status: Former smoker Smokeless Tobacco Status: No Alcohol use: none Drug use: none - Family History Mother Hx Family Cardiac Disorders: Yes Medications and Allergies Insulin LISPRO [Humalog] 12 - 20 unit SQ TID 02/20/15 [History] [place]-3/Dha/Epa/Fish Oil [Fish Oil 1,000 mg Softgel] 2,400 mg PO QAM 07/01/15 [History] Vit A/Vit C/Vit E/Zinc/Copper [Preservision Areds Tablet] 1 each PO BID 07/01/15 [History] Aspirin [Lo-Dose Aspirin EC] 81 mg PO DAILY 11/13/18 [History] Atorvastatin Calcium [Lipitor] 80 mg PO HS 11/13/18 [History] Calcium Carbonate/Vitamin D3 [Calcium 600 + Vit D Softgel] 1 each PO BID 11/13/18 [History] Carvedilol [Coreg] 6.25 mg PO BID 11/13/18 [History] Cholecalciferol (Vitamin D3) [Vitamin D3] 1,000 unit PO DAILY 11/13/18 [History] Cyanocobalamin (Vitamin B-12) [Vitamin B-12] 1,000 mcg PO DAILY 11/13/18 [History] Fenofibrate Nanocrystallized [Fenofibrate] 160 mg PO DAILY 11/13/18 [History] Ferrous Sulfate 325 mg PO BIDWM 11/13/18 [History] Furosemide [Lasix] 40 mg PO DAILY 11/13/18 [History] Insulin Glargine,Hum.rec.anlog [Basaglar Kwikpen U-100] 30 unit SQ HS 11/13/18 [History] Metformin HCl 1,000 mg PO BID 11/13/18 [History] Multivitamin [One Daily Essential] 1 tab PO DAILY 11/13/18 [History] [place]vue-3/Dha/Epa/Dpa/Fish Oil [[place]-3 1,050 mg Softgel] 1,200 each PO HS 11/13/18 [History] Omeprazole 40 mg PO DAILY 11/13/18 [History] Warfarin [Coumadin] 2.5 mg PO Q48H 11/13/18 [History] Warfarin [Coumadin] 5 mg PO Q48H 11/13/18 [History] Lisinopril 2.5 mg PO DAILY #30 tablet 11/15/18 [Rx] Ranolazine [Ranexa] 1,000 mg PO BID #60 tab.er.12h 11/15/18 [Rx] Allergy/AdvReac Type Severity Reaction Status Date / Time No Known Allergies Allergy Verified 11/13/18 21:44 All Systems Review: The remainder of the systems were reviewed and are negative - Cardiovascular Cardiovascular: as per HPI, chest pain at rest, chest pain with exertion, dyspnea on exertion Physical Examination Vital Signs, Last 4 Hours Temp Pulse Resp BP Pulse Ox 11/15/18 07:00 98.2 F 81 17 134/83 94 Vital Signs Temp Pulse Resp BP Pulse Ox 11/15/18 07:00 98.2 F 81 17 134/83 94 11/15/18 03:36 97.8 F 91 16 136/74 93 11/14/18 22:49 98.0 F 84 16 154/86 96 11/14/18 18:55 98.0 F 83 14 133/73 95 11/14/18 15:56 98.1 F 89 17 139/77 95 11/14/18 11:32 98.2 F 86 15 142/82 91 Intake and Output 11/14/18 11/15/18 11/15/18 23:59 07:59 15:59 Intake Total 0 / 0 200 / 200 0 / 200 Output Total 0 / 200 0 / 0 Balance 0 / -200 200 / 200 0 / 200 Intake: Oral 0 / 0 200 / 200 0 / 200 Output: Urine 0 / 200 0 / 0 Other: Meal Breakfast NPO # Voids 1 Weight 95 kg Blood Glucose* 141 136 Patient Weight 11/15/18 23:59 Weight 95 kg General: Conversant, No Apparent Distress HEENT: Atraumatic, Normocephaly, Mucus Membranes Moist Neck: No JVD, Normal carotid pulses Cardiac: Reg Rate and Rhythm, Normal S1 and S2, No Murmur Lungs: Normal Breath Sounds, No Wheeze, Rales, Rhonchi Neuro: Alert and responsive, No focal deficits noted Abdomen: Soft, Non-Tender Skin: No rashes noted on visualized skin Musculoskeletal: No Chest Wall Tenderness Extremities: No Clubbing, No Cyanosis, No Edema, Normal Pulses Results 11/14/18 02:28 11/14/18 02:28 Impressions Echocardiogram 11/13/18 17:26 Impressions: LVEF 35%. Severely dilated left ventricle. Global left ventricular systolic dysfunction with regional variations. Atypical septal motion consistent with post-operative status. Mild left ventricular diastolic dysfunction. There is no LV thrombus. Right ventricular size was not well evaluated. Function appears mildly reduced. Moderately calcified aortic valve leaflets. Mild aortic stenosis by Doppler. Severity of possibly underestimated due to LV systolic dysfunction. Mild mitral regurgitation. Mild tricuspid regurgitation. Mild pulmonary hypertension. There is a small to moderate pericardial effusion localized around the right atrium. No tamponade. Left Ventricular Wall Motion: Rest Echo Findings The apex, apical inferior, mid inferior, basal inferior, apical anterior, mid anterior, basal anterior, apical septal, mid inferior septal, basal inferior septal, apical lateral, mid anterior lateral, basal anterior lateral, mid anterior septal, mid inferior lateral, basal anterior septal and basal inferior lateral norris were hypokinetic. Findings: Study Quality * Technically sub-optimal due to poor echocardiographic windows. ECG Findings * Normal sinus rhythm. Left Ventricle * LVEF 35%. * Severely dilated left ventricle. * Gllobal left ventricular systolic dysfunction with regional variations. * Atypical septal motion consistent with post-operative status. * Mild left ventricular diastolic dysfunction. * There is no LV thrombus. Right Ventricle * Right ventricular size was not well evaluated. Function appears mildly reduced. Left Atrium * Mildly dilated left atrium. Right Atrium * Normal right atrial size. Interatrial Septum * Interatrial septum not well evaluated. Aortic Valve * Moderately calcified aortic valve leaflets. * Trace aortic regurgitation. * Mild aortic stenosis by Doppler. Severity of possibly underestimated due to LV systolic dysfunction. Mitral Valve * Mild mitral annular calcification * Mildly thickened mitral valve leaflets. * Mild mitral regurgitation. * No mitral stenosis. Tricuspid Valve * Normal tricuspid valve structure. * Mild tricuspid regurgitation. * Mild pulmonary hypertension. Pulmonic Valve * Pulmonic valve not well visualized. Aorta * Normally sized aortic root. Pericardium * There is a small to moderate pericardial effusion localized around the right atrium. No tamponade. IVC * Normal IVC dimensions and inspiratory collapse. Pulmonary Artery * Pulmonary artery not well visualized. Active Medications Aspirin (Aspirin Ec) 81 mg PO DAILY OWEN Stop: 05/16/19 09:01 Last Admin: 11/15/18 08:38 Dose: 81 mg Documented by: Atorvastatin Calcium (Lipitor) 80 mg PO HS [facility] Stop: 05/15/19 21:01 Last Admin: 11/14/18 21:08 Dose: 80 mg Documented by: Carvedilol (Coreg) 6.25 mg PO BIDWM [facility]; Protocol Stop: 05/15/19 17:01 Last Admin: 11/15/18 08:39 Dose: 6.25 mg Documented by: Dextrose/Water (Dextrose 50% (Syg)) 25 ml IVP AD PRN PRN Reason: Hypoglycemia Stop: 05/15/19 17:00 Ferrous Sulfate (Ferrous Sulfate) 325 mg PO BIDWM [facility] Stop: 05/16/19 08:01 Last Admin: 11/15/18 08:38 Dose: 325 mg Documented by: Furosemide (Lasix) 40 mg PO DAILY [facility] Stop: 05/16/19 09:01 Last Admin: 11/15/18 08:38 Dose: 40 mg Documented by: Glucagon (Glucagen) 1 mg IM ONCE PRN PRN Reason: Hypoglycemia Stop: 05/15/19 17:00 Glucose (Gluctose) 15 gm PO ONCE PRN PRN Reason: Hypoglycemia Stop: 05/15/19 17:00 Glucose (Gluctose) 30 gm PO ONCE PRN PRN Reason: Hypoglycemia Stop: 05/15/19 17:00 Dextrose (Dextrose 5%) 1,000 mls @ 100 mls/hr IVC .Q10H PRN PRN Reason: HYPOGLYCEMIA Stop: 05/15/19 17:00 Insulin Detemir (Levemir) 30 unit SQ HS [facility] Stop: 05/15/19 22:01 Last Admin: 11/14/18 21:06 Dose: Not Given Documented by: Insulin Human Lispro (Humalog) 0 units SQ TIDAC [facility]; Protocol Stop: 05/16/19 07:31 Last Admin: 11/15/18 07:48 Dose: Not Given Documented by: Insulin Human Lispro (Humalog) 0 units SQ HS [facility]; Protocol Stop: 05/15/19 21:01 Last Admin: 11/14/18 21:08 Dose: Not Given Documented by: Naloxone HCl (Narcan) 0.4 mg IVP Q2MPRN PRN PRN Reason: SEE COMMENTS Stop: 05/15/19 16:58 Omeprazole (Prilosec) 20 mg PO DAILY@0730 [facility]; Protocol Stop: 05/16/19 07:31 Last Admin: 11/15/18 08:38 Dose: 20 mg Documented by: Ranolazine (Ranexa) 500 mg PO BID [facility] Stop: 05/16/19 09:01 Last Admin: 11/15/18 08:38 Dose: 500 mg Documented by: Warfarin Sodium (Coumadin Perpt) 1 each PO DAILY@1800 PRN; Protocol PRN Reason: SEE COMMENTS Stop: 05/15/19 18:01 - Imaging and Cardiology Stress Test: report reviewed Echo: report reviewed - EKG Interpretation EKG results cardiology: personally reviewed (SR), other (12 hr tele AVG HR 79, SR, 3 beat run NSVT) Consult Discharge Plan - Plan Referrals: Niles Sevilla MD [Primary Care Provider] - 11/19/18 1:00 pm Prescriptions: Lisinopril 2.5 mg PO DAILY #30 tablet Ranolazine [Ranexa] 1,000 mg PO BID #60 tab.er.12h <BerhaneMonet - Last Filed: 11/15/18 11:45> Date of Encounter: 11/15/18 - Attending Attestation I examined this patient and my medical decision-making was reviewed with the A AND P MECHANIC. I agree with the documented findings, disposition and treatment plan as described. Mr. Bridges presents with intermittent chest pain different from prior anginal equivalent. Stress testing demonstrated old infarct, no ischemia with EF 30%. TTE EF 35%. Prior patient of Dr. No - case discussed. Recommend medical management for now. Will follow up as outpatient. Assessment and Plan Discussion w patient/family: The assessment and plan as outlined above was discussed with the patient and/or family members who expressed understanding and agreement. All questions were answered. Thank you for involving us in the care of your patient. Please call with any questions. History of Present Illness History of present illness: Mr. Bridges is a 78 year old male All Systems Review: The remainder of the systems were reviewed and are negative Physical Examination Vital Signs, Last 4 Hours Temp Pulse Resp BP Pulse Ox 11/15/18 10:59 97.6 F 56 16 132/75 98 Results 11/14/18 02:28 11/14/18 02:28 Lab Results 11/15/18 10:21 INR 2.6
--- NOTE | 2018-11-15 10:39 | Discharge Summary ---
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 (3) DM2 (diabetes mellitus, type 2) Priority: Secondary Status: Chronic Qualifiers: Diabetes mellitus intermediate insulin use: unspecified intermediate insulin use status Diabetes mellitus complication status: without complication Qualified Code(s): E11.9 - Type 2 diabetes mellitus without complications (4) CHF (congestive heart failure) Priority: Secondary Status: Chronic Qualifiers: Heart failure type: unspecified Heart failure chronicity: chronic Qualified Code(s): I50.9 - Heart failure, unspecified (5) HLD (hyperlipidemia) Priority: Secondary Status: Chronic Qualifiers: Hyperlipidemia type: unspecified Qualified Code(s): E78.5 - Hyperlipidemia, unspecified (6) GERD (gastroesophageal reflux disease) Priority: Secondary Status: Chronic Qualifiers: Esophagitis presence: esophagitis presence not specified Qualified Code(s): K21.9 - Gastro-esophageal reflux disease without esophagitis (7) Hx of deep venous thrombosis Priority: Secondary Status: Chronic (8) DVT prophylaxis Priority: Secondary Status: Acute (9) Leukocytosis Priority: Secondary Status: Acute Qualifiers: Leukocytosis type: unspecified Qualified Code(s): D72.829 - Elevated white blood cell count, unspecified Hospital course: Mr. Bridges is a 78 year old male with PMH of CAD s/p CABG and stents, CHF, hx of DVTs on Coumadin, GERD, HLD, and HTN. He presented to the [facility] ED today complaining of intermittent chest pain of 2 days duration. States the rendon is a d ull pressure and is located in 3 separate locations on his chest without radiation of the pain. States the pressure is most intense in the mid-sternum, but is also in the right upper chest, and lateral left chest. Unable to identify exacerbating or relieving factors. Denies any shortness of breath, fever, chills, cough, or increased congestion. He was admitted for further workup. Vitals were stable on admission. Initial troponin negative. Echocardiogram showed EF 35%. Nuclear stress test showed prior infarct, negative for ischemia. Prior echo showed EF 45-50% at [facility]. Cardiology was consulted and home Ranexa was increased to 1,000 mg BID and started on lisinopril. He was discharged home in stable condition to follow-up with Cardiology. - Time Spent with Patient Total time spent providing and/or coordinating discharge services: - Discharge Medications Prescriptions: New Lisinopril 2.5 mg PO DAILY #30 tablet Ranolazine [Ranexa] 1,000 mg PO BID #60 tab.er.12h Continued Vit A/Vit C/Vit E/Zinc/Copper [Preservision Areds Tablet] 1 each PO BID [place]-3/Dha/Epa/Fish Oil [Fish Oil 1,000 mg Softgel] 2,400 mg PO QAM Warfarin [Coumadin] 5 mg PO Q48H Warfarin [Coumadin] 2.5 mg PO Q48H Ferrous Sulfate 325 mg PO BIDWM Cyanocobalamin (Vitamin B-12) [Vitamin B-12] 1,000 mcg PO DAILY Cholecalciferol (Vitamin D3) [Vitamin D3] 1,000 unit PO DAILY Calcium Carbonate/Vitamin D3 [Calcium 600 + Vit D Softgel] 1 each PO BID [place]-3/Dha/Epa/Dpa/Fish Oil [[place]-3 1,050 mg Softgel] 1,200 each PO HS Aspirin [Lo-Dose Aspirin EC] 81 mg PO DAILY Atorvastatin Calcium [Lipitor] 80 mg PO HS Carvedilol [Coreg] 6.25 mg PO BID Fenofibrate Nanocrystallized [Fenofibrate] 160 mg PO DAILY Furosemide [Lasix] 40 mg PO DAILY Insulin Glargine,Hum.rec.anlog [Basaglar Kwikpen U-100] 30 unit SQ HS Metformin HCl 1,000 mg PO BID Multivitamin [One Daily Essential] 1 tab PO DAILY Omeprazole 40 mg PO DAILY Insulin LISPRO [Humalog] 12 - 20 unit SQ TID Discontinued Ranolazine [Ranolazine ER] 500 mg PO BID Home Medications: Insulin LISPRO [Humalog] 12 - 20 unit SQ TID 02/20/15 [History] [place]-3/Dha/Epa/Fish Oil [Fish Oil 1,000 mg Softgel] 2,400 mg PO QAM 07/01/15 [History] Vit A/Vit C/Vit E/Zinc/Copper [Preservision Areds Tablet] 1 each PO BID 07/01/15 [History] Aspirin [Lo-Dose Aspirin EC] 81 mg PO DAILY 11/13/18 [History] Atorvastatin Calcium [Lipitor] 80 mg PO HS 11/13/18 [History] Calcium Carbonate/Vitamin D3 [Calcium 600 + Vit D Softgel] 1 each PO BID 11/13/18 [History] Carvedilol [Coreg] 6.25 mg PO BID 11/13/18 [History] Cholecalciferol (Vitamin D3) [Vitamin D3] 1,000 unit PO DAILY 11/13/18 [History] Cyanocobalamin (Vitamin B-12) [Vitamin B-12] 1,000 mcg PO DAILY 11/13/18 [History] Fenofibrate Nanocrystallized [Fenofibrate] 160 mg PO DAILY 11/13/18 [History] Ferrous Sulfate 325 mg PO BIDWM 11/13/18 [History] Furosemide [Lasix] 40 mg PO DAILY 11/13/18 [History] Insulin Glargine,Hum.rec.anlog [Basaglar Kwikpen U-100] 30 unit SQ HS 11/13/18 [History] Metformin HCl 1,000 mg PO BID 11/13/18 [History] Multivitamin [One Daily Essential] 1 tab PO DAILY 11/13/18 [History] [place]-3/Dha/Epa/Dpa/Fish Oil [[place]-3 1,050 mg Softgel] 1,200 each PO HS 11/13/18 [History] Omeprazole 40 mg PO DAILY 11/13/18 [History] Warfarin [Coumadin] 2.5 mg PO Q48H 11/13/18 [History] Warfarin [Coumadin] 5 mg PO Q48H 11/13/18 [History] Lisinopril 2.5 mg PO DAILY #30 tablet 11/15/18 [Rx] Ranolazine [Ranexa] 1,000 mg PO BID #60 tab.er.12h 11/15/18 [Rx] Allergies/Adverse Reactions: Allergy/AdvReac Type Severity Reaction Status Date / Time No Known Allergies Allergy Verified 11/13/18 21:44 Date of admission: 11/13/18 16:20 Primary care physician: Niles Sevilla Consults: 11/14/18 16:09 Consult to Cardiology [CONS] Routine Comment: Consulting Provider: Cardiology Sanjuanita Reason for Consult: EF decreased <35% on stress and resting echo Time Notified: 16:00 Call Completed: Yes Discharging clinician: Nidia Osei - Constitutional Vitals: Temp Pulse Resp BP Pulse Ox 98.2 F 81 17 134/83 94 11/15/18 07:00 11/15/18 07:00 11/15/18 07:00 11/15/18 07:00 11/15/18 07:00 General appearance: Present: cooperative, A&O X 3, pleasant, no acute distress, answers questions appropriately Exam: . - Head Head exam: Present: atraumatic, normocephalic - Eye Eye exam: Present: PERRL, conjuntiva pink, sclera anicteric Pupils: Present: PERRL - Neck Neck exam general surgery: Present: supple, trachea midline. Absent: lymphadenopathy - Respiratory Respiratory exam: Present: CTAB. Absent: accessory muscle use, rales, rhonchi, wheezes - Cardiovascular Cardiovascular exam: Present: RRR, +S1, +S2. Absent: diastolic murmur, gallop, rubs, systolic murmur - GI/Abdominal GI/Abdominal exam: Present: normal bowel sounds, soft, no peritoneal signs. Absent: distended, tenderness - Extremities Exam Extremities exam: Present: warm, radial pulses palpable and symmetrical. Absent: calf tenderness, cyanotic, pedal edema - Neurological Exam Neurological exam: Present: CN II-XII intact, oriented X3, no focal deficits. Absent: pronater drift, facial droop, speech deficit - Skin Skin exam: Present: dry, intact - Patient Status Disposition: Home, Self-Care Condition: Good Functional capacity at discharge: independent ambulation Overall status at discharge: patient is back to baseline - Discharge Instructions Follow Up With: Niles Sevilla MD [Primary Care Provider] - 11/19/18 1:00 pm Forms: ED Satisfaction Letter - Diet and Activity Activity: increase activity as tolerated Diet: advance to your usual diet
[2018-11-15 10:47] LABS: INR 2.6; Prothrombin Time 30.1 Seconds (9.4-12.1)
[2018-11-15] MEDS ORDERED: Ranolazine 500 MG TAB.ER.12H PO ONE (10:56)
[2018-11-15 10:59] VITALS: BP 132/75
[2018-11-15] MEDS ORDERED: *HR* Warfarin 5 MG TABLET PO ONE (18:00)
[2018-11-15] MEDS ORDERED: Ranolazine 500 MG TAB.ER.12H PO SCH (21:00)
== END 2018-11-15 12:45 | disposition home or self-care (01) ==
LOC: 3BNU 13:47 → EMEROOARM 13:47 → SUATTDRO 16:20 → 3BNU 18:12
PROVIDERS: ADMIT Internal Medicine; ATTEND Student in an Organized Health Care Education/Training Program

== ENCOUNTER 2019-07-03 14:58 | Observation (INO) ==
[2019-07-03] MEDS ORDERED: Naloxone 0.4 MG/ML INJ IVP PRN (17:01)
[2019-07-03] MEDS ORDERED: [UNRECOGNIZED DRUG - OTHER] IVPB ONE (17:09)
[2019-07-03] MEDS ORDERED: HUM PROTHROMBIN CPLX IVPB ONE (17:09)
[2019-07-03] MEDS ORDERED: WATER FOR INJ IVPB ONE (17:09)
[2019-07-03] MEDS ORDERED: SODIUM CHLORIDE/NAHCO3/KCL/PEG 4,000 ML SOLN.RECON PO ONE (17:13)
[2019-07-03] MEDS ORDERED: 0.9 % Sodium Chloride 250 ML ONE (19:49)
[2019-07-03] MEDS: Pantoprazole 40 MG VIAL IVP SCH ×2 (19:56→20:55)
[2019-07-03] MEDS: carvediloL 6.25 MG TABLET PO SCH (19:56)
[2019-07-04 02:47] LABS: Basophils % 0.3 %; Eosinophils # 0.2 K/mcL (0.0-0.6); Eosinophils % 1.3 %; Hematocrit 22.8 % (37.5-50.1); Immature Granulocytes % 0.9 % (0-4); Lymphocytes # 4.1 K/mcL (0.6-4.6); Mean Corpuscular HGB Conc 30.7 g/dL (31.6-35.5); Mean Corpuscular Hemoglobin 29.3 pg (28.0-33.3); Mean Corpuscular Volume 95.4 fL (83.0-100.0); Mean Platelet Volume 9.9 fL (9.4-12.4); Monocytes # 1.4 K/mcL (0.0-1.3); Monocytes % 10.2 %; Neutrophils # 8.2 K/mcL (1.6-8.9); Nucleated Red Blood Cells 1.9 /100 WBC (0); Platelet Count 509 K/mcL (140-400); Red Blood Count 2.39 M/mcL (4.19-5.50); Red Cell Distribution Width 18.1 % (11.5-14.5); Segmented Neutrophils % 58.3 %; White Blood Count 14.1 K/mcL (4.3-11.1)
[2019-07-04 03:11] LABS: BUN/Creatinine Ratio 54 (6-26); Blood Urea Nitrogen 74 mg/dL (8-23); Calcium 9.9 mg/dL (8.6-10.3); Carbon Dioxide 22 mEq/L (23-29); Chloride 104 mEq/L (98-107); Glucose 227 mg/dL (70-105); Osmolality,Calculated 313 (280-300); Potassium 4.5 mEq/L (3.5-5.1); Sodium 137 mEq/L (136-145); eGFR For African Americans > 60 (> 60); eGFR For Non-African Americans 50 (> 60)
[2019-07-04] MEDS: Pantoprazole 40 MG VIAL IVP SCH ×2 (04:11→16:26)
[2019-07-04] MEDS ORDERED: Lidocaine -MPF 2% 2 ML VIAL ONE ×3 (06:45→07:26)
[2019-07-04] MEDS ORDERED: *HR* Succinylcholine 200 MG/10 ML VIAL IVP ONE (06:45)
[2019-07-04] MEDS ORDERED: *HR* Propofol 200 MG/20 ML VIAL IVP ONE ×4 (06:45→08:31)
[2019-07-04] MEDS ORDERED: *HR* Etomidate 40 MG/20 ML VIAL IVP ONE (06:51)
[2019-07-04 06:52] LABS: INR 1.6; Prothrombin Time 18.2 Seconds (9.4-12.1)
[2019-07-04] MEDS ORDERED: *HR* PHENYLEPHRINE 1,000 MCG/10 ML SYRINGE IVP ONE (07:01)
[2019-07-04] MEDS ORDERED: EPHEDrine 50 MG/ML VIAL ONE (07:28)
[2019-07-04] MEDS ORDERED: *HR* Vasopressin 20 UNIT/ML VIAL ONE (07:57)
[2019-07-04] MEDS: carvediloL 6.25 MG TABLET PO SCH ×2 (08:12→20:16)
[2019-07-04] MEDS: 0.9 % Sodium Chloride 500 ML IVC SCH ×2 (09:34→20:16)
[2019-07-04] MEDS: Furosemide 40 MG TABLET PO SCH (15:10)
[2019-07-04 15:54] LABS: Hematocrit 19.1 % (37.5-50.1)
[2019-07-04] MEDS ORDERED: 0.9 % Sodium Chloride 250 ML ONE (16:50)
[2019-07-04] MEDS ORDERED: Insulin DETEMIR 100 UNIT/ML X5UNITS SQ SCH (21:00)
[2019-07-04] MEDS ORDERED: NON-FORMULARY MEDICATION 1 EACH EACH (Insulin Glargine,Hum.Rec.Anlog [Basaglar Kwikpen U-1 SQ SCH (21:00)
[2019-07-04 22:31] LABS: Hematocrit 21.5 % (37.5-50.1); Hemoglobin 6.8 g/dL (12.9-16.9)
[2019-07-05] MEDS: Pantoprazole 40 MG VIAL IVP SCH (05:00)
[2019-07-05 06:45] VITALS: BP 105/62
[2019-07-05] MEDS: Furosemide 40 MG TABLET PO SCH (07:24)
[2019-07-05] MEDS: carvediloL 6.25 MG TABLET PO SCH (07:24)
[2019-07-05 07:56] LABS: Hematocrit 23.6 % (37.5-50.1); Hemoglobin 7.6 g/dL (12.9-16.9); Mean Corpuscular HGB Conc 32.2 g/dL (31.6-35.5); Mean Corpuscular Hemoglobin 29.8 pg (28.0-33.3); Mean Corpuscular Volume 92.5 fL (83.0-100.0); Platelet Count 409 K/mcL (140-400); Red Blood Count 2.55 M/mcL (4.19-5.50); Red Cell Distribution Width 17.8 % (11.5-14.5); White Blood Count 16.6 K/mcL (4.3-11.1)
[2019-07-05 08:11] LABS: BUN/Creatinine Ratio 36 (6-26); Blood Urea Nitrogen 47 mg/dL (8-23); Calcium 8.5 mg/dL (8.6-10.3); Carbon Dioxide 27 mEq/L (23-29); Chloride 106 mEq/L (98-107); Glucose 130 mg/dL (70-105); Magnesium 1.6 mg/dL (1.6-2.6); Osmolality,Calculated 302 (280-300); Potassium 3.5 mEq/L (3.5-5.1); Sodium 139 mEq/L (136-145); eGFR For African Americans > 60 (> 60); eGFR For Non-African Americans 54 (> 60)
[2019-07-05] MEDS ORDERED: Aspirin Enteric Coated 81 MG Tablet PO SCH (09:00)
== END 2019-07-05 12:35 | disposition home or self-care (01) ==
LOC: 3NENU → SUATTDRO 16:51
PROVIDERS: ADMIT Internal Medicine; ATTEND Internal Medicine

== ENCOUNTER 2020-06-22 03:17 | Inpatient (IN) ==
[2020-06-22] MEDS ORDERED: *HR* Dextrose 50 % in Water (Vial) 50 ML VIAL IVP PRN (06:08)
[2020-06-22] MEDS ORDERED: D5% in Water 1,000 ML IVC PRN (06:08)
[2020-06-22] MEDS ORDERED: Dextrose Gel 15 GM/37.5 ML TUBE PO PRN ×2 (06:08)
[2020-06-22] MEDS ORDERED: Melatonin 3 MG TABLET PO PRN (06:09)
[2020-06-22] MEDS ORDERED: Ondansetron 4 MG/2 ML VIAL IVP PRN (06:09)
[2020-06-22] MEDS ORDERED: Acetaminophen 325 MG TABLET PO PRN (06:09)
[2020-06-22] MEDS ORDERED: Naloxone 0.4 MG/ML INJ IVP PRN (06:09)
[2020-06-22] MEDS ORDERED: Albuterol 2.5 MG/3 ML NEBULIZER IH PRN (06:47)
[2020-06-22] MEDS: Albuterol 2.5 MG/3 ML NEBULIZER IH SCH ×4 (08:00→20:06)
[2020-06-22] MEDS: Insulin LISPRO 300 UNITS/3 ML VIAL SUBQ SCH ×4 (08:44→21:12)
[2020-06-22] MEDS: Apixaban 5 MG TABLET PO SCH ×2 (09:54→20:17)
[2020-06-22] MEDS: Ranolazine 500 MG TAB.ER.12H PO SCH ×2 (09:54→20:17)
[2020-06-22] MEDS: Furosemide 40 MG/4 ML VIAL IVP SCH (09:54)
[2020-06-22] MEDS: predniSONE 20 MG TABLET PO SCH (09:54)
[2020-06-22] MEDS: Aspirin Enteric Coated 81 MG Tablet PO SCH (09:54)
[2020-06-22] MEDS: carvediloL 6.25 MG TABLET PO SCH ×2 (09:54→16:27)
[2020-06-22] MEDS ORDERED: hydrOXYzine pamoate 25 MG CAPSULE PO ONE (15:11)
[2020-06-22] MEDS: Insulin DETEMIR 100 UNIT/ML X5UNITS SUBQ SCH (22:30)
[2020-06-23] MEDS ORDERED: Furosemide 20 MG/2 ML VIAL IVP ONE (03:21)
[2020-06-23] MEDS: Albuterol 2.5 MG/3 ML NEBULIZER IH SCH ×7 (03:33→23:39)
[2020-06-23 05:06] LABS: Basophils % 0.2 %; Eosinophils % 0.2 %; Hematocrit 27.6 % (37.5-50.1); Hemoglobin 8.8 g/dL (12.9-16.9); Immature Granulocytes % 0.5 % (0-4); Lymphocytes # 1.8 K/mcL (0.6-4.6); Lymphocytes % 12.9 %; Mean Corpuscular HGB Conc 31.9 g/dL (31.6-35.5); Mean Corpuscular Hemoglobin 29.7 pg (28.0-33.3); Mean Corpuscular Volume 93.2 fL (83.0-100.0); Monocytes # 1.3 K/mcL (0.0-1.3); Monocytes % 9.2 %; Neutrophils # 10.6 K/mcL (1.6-8.9); Platelet Count 591 K/mcL (140-400); Red Blood Count 2.96 M/mcL (4.19-5.50); Red Cell Distribution Width 15.2 % (11.5-14.5); White Blood Count 13.8 K/mcL (4.3-11.1)
[2020-06-23 05:21] LABS: BUN/Creatinine Ratio 21 (6-26); Blood Urea Nitrogen 24 mg/dL (8-23); Calcium 9.4 mg/dL (8.6-10.3); Carbon Dioxide 27 mEq/L (23-29); Chloride 101 mEq/L (98-107); Glucose 135 mg/dL (70-105); Osmolality,Calculated 290 (280-300); Potassium 3.9 mEq/L (3.5-5.1); Sodium 137 mEq/L (136-145); eGFR For African Americans > 60 (> 60); eGFR For Non-African Americans > 60 (> 60)
[2020-06-23] MEDS ORDERED: Azithromycin 500 MG in 0.9 % Sodium Chloride 250 ML IVPB SCH (07:00)
[2020-06-23] MEDS: Ranolazine 500 MG TAB.ER.12H PO SCH ×2 (07:58→20:33)
[2020-06-23] MEDS: Apixaban 5 MG TABLET PO SCH ×2 (07:58→20:33)
[2020-06-23] MEDS: Furosemide 40 MG/4 ML VIAL IVP SCH ×3 (07:58→20:33)
[2020-06-23] MEDS: carvediloL 6.25 MG TABLET PO SCH ×2 (07:58→17:24)
[2020-06-23] MEDS: Aspirin Enteric Coated 81 MG Tablet PO SCH (07:58)
[2020-06-23] MEDS: predniSONE 20 MG TABLET PO SCH (07:58)
[2020-06-23] MEDS: Insulin LISPRO 300 UNITS/3 ML VIAL SUBQ SCH ×4 (07:59→20:55)
[2020-06-23] MEDS ORDERED: *HR* Heparin 5,000 UNIT/ML VIAL IVP PRN ×2 (08:35)
[2020-06-23] MEDS ORDERED: *HR* Heparin 5,000 UNIT/ML VIAL IVP ONE (08:35)
[2020-06-23] MEDS ORDERED: Heparin 25,000UNIT/250ML 1/2NS 25,000 UNIT/250 ML IV.SOLN IVC SCH (08:45)
[2020-06-23] MEDS ORDERED: cefTRIAXone 1,000 MG in Water for inj. (sterile) 10 ML IVP SCH (09:00)
[2020-06-23 09:06] LABS: Hematocrit 29.1 % (37.5-50.1); Hemoglobin 9.2 g/dL (12.9-16.9); Mean Corpuscular HGB Conc 31.6 g/dL (31.6-35.5); Mean Corpuscular Hemoglobin 30.9 pg (28.0-33.3); Mean Corpuscular Volume 97.7 fL (83.0-100.0); Mean Platelet Volume 10.1 fL (9.4-12.4); Platelet Count 590 K/mcL (140-400); Red Blood Count 2.98 M/mcL (4.19-5.50); Red Cell Distribution Width 15.3 % (11.5-14.5); White Blood Count 13.4 K/mcL (4.3-11.1)
[2020-06-23 09:22] LABS: INR 2.1; Prothrombin Time 23.3 Seconds (9.4-12.1)
[2020-06-23 09:35] LABS: Heparin anti-factor XA UFH > 2.00 IU/mL (0.30-0.70)
[2020-06-23 09:48] LABS: Troponin I 0.15 ng/mL (< 0.04)
[2020-06-23] MEDS ORDERED: Iron Sucrose Complex 400 MG in 0.9 % Sodium Chloride 250 ML IVPB ONE (14:26)
[2020-06-23] MEDS: Insulin DETEMIR 100 UNIT/ML X5UNITS SUBQ SCH (20:55)
[2020-06-24 03:07] LABS: Hematocrit 26.1 % (37.5-50.1); Hemoglobin 8.3 g/dL (12.9-16.9); Mean Corpuscular HGB Conc 31.8 g/dL (31.6-35.5); Mean Corpuscular Volume 94.2 fL (83.0-100.0); Mean Platelet Volume 10.5 fL (9.4-12.4); Platelet Count 553 K/mcL (140-400); Red Blood Count 2.77 M/mcL (4.19-5.50); Red Cell Distribution Width 15.5 % (11.5-14.5); White Blood Count 13.9 K/mcL (4.3-11.1)
[2020-06-24 03:26] LABS: BUN/Creatinine Ratio 25 (6-26); Blood Urea Nitrogen 32 mg/dL (8-23); Calcium 9.2 mg/dL (8.6-10.3); Carbon Dioxide 28 mEq/L (23-29); Chloride 101 mEq/L (98-107); Glucose 135 mg/dL (70-105); Magnesium 1.8 mg/dL (1.6-2.6); Osmolality,Calculated 295 (280-300); Potassium 3.9 mEq/L (3.5-5.1); Sodium 138 mEq/L (136-145); eGFR For African Americans > 60 (> 60); eGFR For Non-African Americans 55 (> 60)
[2020-06-24] MEDS: Albuterol 2.5 MG/3 ML NEBULIZER IH SCH ×6 (03:42→23:47)
[2020-06-24] MEDS: Furosemide 40 MG/4 ML VIAL IVP SCH ×2 (07:54→21:12)
[2020-06-24] MEDS: Apixaban 5 MG TABLET PO SCH ×2 (07:54→21:11)
[2020-06-24] MEDS: Ranolazine 500 MG TAB.ER.12H PO SCH ×2 (07:54→21:11)
[2020-06-24] MEDS: Aspirin Enteric Coated 81 MG Tablet PO SCH (07:54)
[2020-06-24] MEDS: carvediloL 6.25 MG TABLET PO SCH ×2 (07:54→16:44)
[2020-06-24] MEDS: Insulin LISPRO 300 UNITS/3 ML VIAL SUBQ SCH ×4 (07:55→21:12)
[2020-06-24] MEDS: Iron Sucrose Complex 250 MG in 0.9 % Sodium Chloride 250 ML IVPB SCH (09:21)
[2020-06-24] MEDS: Insulin DETEMIR 100 UNIT/ML X5UNITS SUBQ SCH (21:12)
[2020-06-25 01:45] LABS: Basophils # 0.1 K/mcL (0.0-0.2); Basophils % 0.6 %; Eosinophils # 0.4 K/mcL (0.0-0.6); Eosinophils % 3.3 %; Hematocrit 27.7 % (37.5-50.1); Hemoglobin 8.6 g/dL (12.9-16.9); Immature Granulocytes % 0.7 % (0-4); Lymphocytes # 1.9 K/mcL (0.6-4.6); Lymphocytes % 14.7 %; Mean Corpuscular Hemoglobin 29.8 pg (28.0-33.3); Mean Corpuscular Volume 95.8 fL (83.0-100.0); Mean Platelet Volume 10.4 fL (9.4-12.4); Monocytes # 1.7 K/mcL (0.0-1.3); Monocytes % 12.9 %; Nucleated Red Blood Cells 0.5 /100 WBC (0); Platelet Count 567 K/mcL (140-400); Red Blood Count 2.89 M/mcL (4.19-5.50); Red Cell Distribution Width 15.5 % (11.5-14.5); Segmented Neutrophils % 67.8 %; White Blood Count 13.2 K/mcL (4.3-11.1)
[2020-06-25 02:07] LABS: BUN/Creatinine Ratio 26 (6-26); Blood Urea Nitrogen 33 mg/dL (8-23); Calcium 9.1 mg/dL (8.6-10.3); Carbon Dioxide 28 mEq/L (23-29); Chloride 100 mEq/L (98-107); Glucose 167 mg/dL (70-105); Osmolality,Calculated 297 (280-300); Potassium 3.7 mEq/L (3.5-5.1); Sodium 138 mEq/L (136-145); eGFR For African Americans > 60 (> 60); eGFR For Non-African Americans 56 (> 60)
[2020-06-25] MEDS: Albuterol 2.5 MG/3 ML NEBULIZER IH SCH ×6 (03:45→23:59)
[2020-06-25] MEDS: Aspirin Enteric Coated 81 MG Tablet PO SCH (09:18)
[2020-06-25] MEDS: Ranolazine 500 MG TAB.ER.12H PO SCH ×2 (09:18→20:18)
[2020-06-25] MEDS: Apixaban 5 MG TABLET PO SCH ×2 (09:19→20:18)
[2020-06-25] MEDS: Furosemide 40 MG/4 ML VIAL IVP SCH ×2 (09:19→20:18)
[2020-06-25] MEDS: Insulin LISPRO 300 UNITS/3 ML VIAL SUBQ SCH ×4 (09:19→20:19)
[2020-06-25] MEDS: carvediloL 6.25 MG TABLET PO SCH ×2 (09:22→16:52)
[2020-06-25] MEDS: Iron Sucrose Complex 250 MG in 0.9 % Sodium Chloride 250 ML IVPB SCH (11:36)
[2020-06-25] MEDS: Insulin DETEMIR 100 UNIT/ML X5UNITS SUBQ SCH (20:18)
[2020-06-26] MEDS: Albuterol 2.5 MG/3 ML NEBULIZER IH SCH ×3 (03:56→10:49)
[2020-06-26 05:15] LABS: Basophils # 0.1 K/mcL (0.0-0.2); Basophils % 0.8 %; Eosinophils # 0.7 K/mcL (0.0-0.6); Eosinophils % 6.7 %; Hematocrit 28.9 % (37.5-50.1); Immature Granulocytes % 0.5 % (0-4); Lymphocytes # 1.8 K/mcL (0.6-4.6); Lymphocytes % 16.6 %; Mean Corpuscular HGB Conc 31.1 g/dL (31.6-35.5); Mean Corpuscular Hemoglobin 29.9 pg (28.0-33.3); Mean Platelet Volume 10.5 fL (9.4-12.4); Monocytes # 1.5 K/mcL (0.0-1.3); Monocytes % 14.2 %; Neutrophils # 6.5 K/mcL (1.6-8.9); Nucleated Red Blood Cells 0.9 /100 WBC (0); Platelet Count 584 K/mcL (140-400); Red Blood Count 3.01 M/mcL (4.19-5.50); Red Cell Distribution Width 15.4 % (11.5-14.5); Segmented Neutrophils % 61.2 %; White Blood Count 10.6 K/mcL (4.3-11.1)
[2020-06-26 05:36] LABS: BUN/Creatinine Ratio 26 (6-26); Blood Urea Nitrogen 31 mg/dL (8-23); Calcium 9.1 mg/dL (8.6-10.3); Carbon Dioxide 30 mEq/L (23-29); Chloride 101 mEq/L (98-107); Glucose 138 mg/dL (70-105); Osmolality,Calculated 297 (280-300); Potassium 3.4 mEq/L (3.5-5.1); Sodium 139 mEq/L (136-145); eGFR For African Americans > 60 (> 60); eGFR For Non-African Americans 58 (> 60)
[2020-06-26] MEDS: Ranolazine 500 MG TAB.ER.12H PO SCH (08:48)
[2020-06-26] MEDS: Furosemide 40 MG/4 ML VIAL IVP SCH (08:48)
[2020-06-26] MEDS: Apixaban 5 MG TABLET PO SCH (08:48)
[2020-06-26] MEDS: Aspirin Enteric Coated 81 MG Tablet PO SCH (08:48)
[2020-06-26] MEDS: carvediloL 6.25 MG TABLET PO SCH (08:48)
[2020-06-26] MEDS: Insulin LISPRO 300 UNITS/3 ML VIAL SUBQ SCH (08:49)
[2020-06-26] MEDS: Iron Sucrose Complex 250 MG in 0.9 % Sodium Chloride 250 ML IVPB SCH (08:51)
[2020-06-26 11:01] VITALS: BP 120/75
== END 2020-06-26 12:45 | disposition home or self-care (01) | DRG 280 ==
LOC: CDU → SUATTDRO 05:23 → 2NENU 18:48 → SUATTDRO 06-23 21:57
PROVIDERS: ADMIT Internal Medicine; ATTEND Internal Medicine

== ENCOUNTER 2020-10-19 15:12 | Inpatient (IN) ==
[2020-10-19] MEDS ORDERED: Naloxone 0.4 MG/ML INJ IVP PRN (17:42)
[2020-10-19] MEDS ORDERED: Acetaminophen 325 MG TABLET PO PRN (17:42)
[2020-10-19] MEDS ORDERED: Ondansetron 4 MG/2 ML VIAL IVP PRN (17:42)
[2020-10-19] MEDS ORDERED: Remdesivir 200 MG in 0.9 % Sodium Chloride 100 ML IVPB ONE (17:49)
[2020-10-19] MEDS ORDERED: *HR* Dextrose 50 % in Water (Vial) 50 ML VIAL IVP PRN (18:53)
[2020-10-19] MEDS ORDERED: D5% in Water 1,000 ML IVC PRN (18:53)
[2020-10-19] MEDS ORDERED: Dextrose Gel 15 GM/37.5 ML TUBE PO PRN ×2 (18:53)
[2020-10-19] MEDS ORDERED: Perflutren Lipid Microsphere 1.3 ML in 0.9 % Sodium Chloride 8.7 ML IVP PRN (18:59)
[2020-10-19 19:02] LABS: Basophils % 0.4 %; Hematocrit 27.3 % (37.5-50.1); Hemoglobin 8.8 g/dL (12.9-16.9); Immature Granulocytes % 0.5 % (0-4); Lymphocytes # 0.9 K/mcL (0.6-4.6); Lymphocytes % 11.3 %; Mean Corpuscular HGB Conc 32.2 g/dL (31.6-35.5); Mean Corpuscular Hemoglobin 31.3 pg (28.0-33.3); Mean Corpuscular Volume 97.2 fL (83.0-100.0); Mean Platelet Volume 10.4 fL (9.4-12.4); Monocytes # 0.3 K/mcL (0.0-1.3); Monocytes % 3.7 %; Neutrophils # 6.6 K/mcL (1.6-8.9); Nucleated Red Blood Cells 0.3 /100 WBC (0); Platelet Count 483 K/mcL (140-400); Red Blood Count 2.81 M/mcL (4.19-5.50); Red Cell Distribution Width 16.7 % (11.5-14.5); Segmented Neutrophils % 84.1 %; White Blood Count 7.8 K/mcL (4.3-11.1)
[2020-10-19 19:08] LABS: INR 1.6; Prothrombin Time 18.1 Seconds (9.4-12.1)
[2020-10-19 19:22] LABS: Calcium 8.4 mg/dL (8.6-10.3)
[2020-10-19 19:24] LABS: Magnesium 1.6 mg/dL (1.6-2.6)
[2020-10-19] MEDS ORDERED: Furosemide 40 MG/4 ML VIAL IVP ONE (19:26)
[2020-10-19 19:28] LABS: Troponin I 1.19 ng/mL (< 0.04)
[2020-10-19] MEDS: Insulin LISPRO 300 UNITS/3 ML VIAL SUBQ SCH ×2 (19:28→21:32)
[2020-10-19] MEDS: Ipratropium 1 PUFF INHALER IH SCH (21:25)
[2020-10-19] MEDS: Apixaban 5 MG TABLET PO SCH (21:31)
[2020-10-19] MEDS: Dexmedetomidine HCl 400 MCG/100 ML MLS IVC SCH (23:00)
[2020-10-20 01:14] LABS: Basophils % 0.2 %; Hematocrit 28.2 % (37.5-50.1); Hemoglobin 9.2 g/dL (12.9-16.9); Immature Granulocytes % 0.3 % (0-4); Lymphocytes # 0.5 K/mcL (0.6-4.6); Mean Corpuscular HGB Conc 32.6 g/dL (31.6-35.5); Mean Corpuscular Hemoglobin 31.5 pg (28.0-33.3); Mean Corpuscular Volume 96.6 fL (83.0-100.0); Mean Platelet Volume 10.5 fL (9.4-12.4); Monocytes # 0.4 K/mcL (0.0-1.3); Monocytes % 4.3 %; Neutrophils # 8.6 K/mcL (1.6-8.9); Nucleated Red Blood Cells 0.2 /100 WBC (0); Platelet Count 496 K/mcL (140-400); Red Blood Count 2.92 M/mcL (4.19-5.50); Red Cell Distribution Width 16.5 % (11.5-14.5); Segmented Neutrophils % 90.2 %; White Blood Count 9.5 K/mcL (4.3-11.1)
[2020-10-20 01:33] LABS: Albumin 3.4 g/dL (3.5-5.7); Albumin/Globulin Ratio 1.2 (1.1-2.2); Bilirubin,Direct 0.1 mg/dL (0.0-0.2); Bilirubin,Indirect 0.3 mg/dL (0.0-1.0); Bilirubin,Total 0.4 mg/dL (0.3-1.0); Globulin 2.8 g/dL (2.4-3.5); Total Protein 6.2 g/dL (6.4-8.9)
[2020-10-20 01:34] LABS: Calcium 8.3 mg/dL (8.6-10.3); Magnesium 1.5 mg/dL (1.6-2.6); Potassium 3.7 mEq/L (3.5-5.1)
[2020-10-20 02:06] LABS: Estimated Average Glucose 120 mg/dl; Hemoglobin A1C 5.8 %
[2020-10-20] MEDS: Ipratropium 1 PUFF INHALER IH SCH ×4 (03:22→21:14)
[2020-10-20] MEDS ORDERED: Acetaminophen IV 1,000 MG/100 ML BAG IVPB ONE (07:43)
[2020-10-20] MEDS: Insulin LISPRO 300 UNITS/3 ML VIAL SUBQ SCH ×4 (07:57→19:47)
[2020-10-20] MEDS: Pantoprazole 40 MG VIAL IVP SCH (08:14)
[2020-10-20] MEDS: Loratadine 10 MG TABLET PO SCH (08:23)
[2020-10-20] MEDS: Apixaban 5 MG TABLET PO SCH (08:23)
[2020-10-20] MEDS: cefTRIAXone 1,000 MG in Water for inj. (sterile) 10 ML IVP SCH (08:26)
[2020-10-20] MEDS: Azithromycin 500 MG in 0.9 % Sodium Chloride 250 ML IVPB SCH (08:26)
[2020-10-20] MEDS ORDERED: *HR* Heparin 5,000 UNIT/ML VIAL IVP PRN ×2 (08:39)
[2020-10-20] MEDS ORDERED: *HR* Heparin 5,000 UNIT/ML VIAL IVP ONE (08:39)
[2020-10-20] MEDS ORDERED: Albumin 25% 25gram/100mL 25 GM/100 ML IV.SOLN IVPB ONE ×2 (09:06→09:07)
[2020-10-20 09:17] LABS: Bilirubin,Urine Negative (Negative); Blood,Urine Large (Negative); Clarity,Urine Ex.Turbid (Clear); Color,Urine Brown (Yellow); Glucose,Urine (UA) Normal (Normal); Ketones,Urine Negative (Negative); Leukocyte Esterase,Urine Trace (Negative); Nitrite,Urine Negative (Negative); PH,Urine 5.5 pH Units (5.0-8.0); Protein,Urine 100 mg/dL (Neg-Trace); Specific Gravity,Urine 1.023 (1.010-1.025); Urobilinogen,Urine Normal (Normal)
[2020-10-20 09:27] LABS: Bacteria,Urine Many per hpf (None-Few); Granular Casts,Urine Few per lpf (None Seen); Hyaline Casts,Urine Few per lpf (None Seen); RBC,Urine TNTC per hpf (0-3)
[2020-10-20 09:31] LABS: Mucus,Urine Few per lpf (None-Few); Renal Epithelial Cells,Urine Few per hpf (None-Few); Transitional Epi Cells,Urine Few per hpf (None-Few)
[2020-10-20 09:32] LABS: Calcium Oxalate Crystals,Urine Present per hpf
[2020-10-20 09:50] LABS: INR 1.8; Prothrombin Time 20.4 Seconds (9.4-12.1)
[2020-10-20 09:53] LABS: Activated Partial Thrombo Time 37.9 Seconds (26.0-36.0)
[2020-10-20] MEDS: Heparin 25,000UNIT/250ML 1/2NS 25,000 UNIT/250 ML IV.SOLN IVC SCH (10:29)
[2020-10-20] MEDS: Norepinephrine 4 MG/254 ML IV.SOLN IVC SCH (11:37)
[2020-10-20 13:03] LABS: Hemoglobin 8.5 g/dL (12.9-16.9); Mean Corpuscular HGB Conc 31.5 g/dL (31.6-35.5); Mean Corpuscular Hemoglobin 30.8 pg (28.0-33.3); Mean Corpuscular Volume 97.8 fL (83.0-100.0); Mean Platelet Volume 10.7 fL (9.4-12.4); Nucleated Red Blood Cells 0.2 /100 WBC (0); Platelet Count 434 K/mcL (140-400); Red Blood Count 2.76 M/mcL (4.19-5.50); Red Cell Distribution Width 16.5 % (11.5-14.5); White Blood Count 11.2 K/mcL (4.3-11.1)
[2020-10-20 13:37] LABS: Calcium 8.6 mg/dL (8.6-10.3); Potassium 3.6 mEq/L (3.5-5.1); Troponin I 4.04 ng/mL (< 0.04)
[2020-10-20 14:09] LABS: Lymphocytes # 1.3 K/mcL (0.6-4.6); Monocytes # 0.2 K/mcL (0.0-1.3); Neutrophils # 8.5 K/mcL (1.6-8.9)
[2020-10-20 14:10] LABS: Anisocytosis 1+ (Not Present); Toxic Vacuolation Present (Not Present)
[2020-10-20 14:11] LABS: Acanthocytes 3+ (Not Present)
[2020-10-20] MEDS ORDERED: Remdesivir 100 MG in 0.9 % Sodium Chloride 100 ML IVPB SCH (18:00)
[2020-10-21 03:29] LABS: Albumin 3.6 g/dL (3.5-5.7); Albumin/Globulin Ratio 1.2 (1.1-2.2); Bilirubin,Direct 0.3 mg/dL (0.0-0.2); Bilirubin,Indirect 0.3 mg/dL (0.0-1.0); Bilirubin,Total 0.6 mg/dL (0.3-1.0); Globulin 2.9 g/dL (2.4-3.5); Total Protein 6.5 g/dL (6.4-8.9)
[2020-10-21] MEDS: Ipratropium 1 PUFF INHALER IH SCH ×4 (03:34→21:26)
[2020-10-21] MEDS: Dexmedetomidine HCl 400 MCG/100 ML MLS IVC SCH (06:13)
[2020-10-21] MEDS: Phenylephrine 10 MG in 0.9 % Sodium Chloride 250 ML IVC SCH ×3 (07:27→21:37)
[2020-10-21] MEDS: Insulin LISPRO 300 UNITS/3 ML VIAL SUBQ SCH ×3 (08:10→18:11)
[2020-10-21] MEDS: Loratadine 10 MG TABLET PO SCH ×2 (08:10→08:15)
[2020-10-21] MEDS: Azithromycin 500 MG in 0.9 % Sodium Chloride 250 ML IVPB SCH (08:10)
[2020-10-21] MEDS: Dexamethasone Sodium Phos/PF 10 MG/ML VIAL IVP SCH (08:10)
[2020-10-21] MEDS: cefTRIAXone 1,000 MG in Water for inj. (sterile) 10 ML IVP SCH (08:11)
[2020-10-21] MEDS: Pantoprazole 40 MG VIAL IVP SCH (08:11)
[2020-10-21] MEDS ORDERED: Albumin Human 5% 12.5 GM/250 ML IV.SOLN IVPB ONE (10:46)
[2020-10-21] MEDS ORDERED: Saliva Stimulant 44.3ml BOTTLE PO PRN (10:52)
[2020-10-21] MEDS ORDERED: *HR* Metoprolol 5 MG/5 ML VIAL IVP PRN (11:20)
[2020-10-21] MEDS ORDERED: *HR* Metoprolol 5 MG/5 ML VIAL IVP ONE (11:23)
[2020-10-21] MEDS: Norepinephrine 4 MG/254 ML IV.SOLN IVC SCH (11:35)
[2020-10-21] MEDS ORDERED: Amiodarone Premix 360 MG/200 ML BAG IVC ONE (12:15)
[2020-10-21] MEDS ORDERED: Amiodarone Premix 150 MG/100 ML BAG IVPB ONE ×2 (12:15→12:26)
[2020-10-21 13:35] LABS: Calcium 8.7 mg/dL (8.6-10.3); Potassium 4.7 mEq/L (3.5-5.1)
[2020-10-21 14:04] LABS: Mean Corpuscular HGB Conc 32.1 g/dL (31.6-35.5); Nucleated Red Blood Cells 0.2 /100 WBC (0)
[2020-10-21 14:09] LABS: Hematocrit 26.5 % (37.5-50.1); Hemoglobin 8.5 g/dL (12.9-16.9); Mean Corpuscular Volume 96.7 fL (83.0-100.0); Mean Platelet Volume 11.3 fL (9.4-12.4); Platelet Count 400 K/mcL (140-400); Red Blood Count 2.74 M/mcL (4.19-5.50); Red Cell Distribution Width 16.4 % (11.5-14.5); White Blood Count 15.9 K/mcL (4.3-11.1)
[2020-10-21 15:06] LABS: Acanthocytes 3+ (Not Present); Burr Cells 3+ (Not Present); Lymphocytes # 0.3 K/mcL (0.6-4.6)
[2020-10-21 15:07] LABS: Platelet Estimate Normal (Normal)
[2020-10-21] MEDS: Amiodarone Premix 360 MG/200 ML BAG IVC SCH (18:21)
[2020-10-21] MEDS: Heparin 25,000UNIT/250ML 1/2NS 25,000 UNIT/250 ML IV.SOLN IVC SCH (18:22)
[2020-10-22] MEDS: Insulin LISPRO 300 UNITS/3 ML VIAL SUBQ SCH ×5 (00:20→23:31)
[2020-10-22] MEDS: Phenylephrine 10 MG in 0.9 % Sodium Chloride 250 ML IVC SCH (02:11)
[2020-10-22 02:38] LABS: Basophils % 0.1 %; Hematocrit 26.6 % (37.5-50.1); Immature Granulocytes % 1.7 % (0-4); Lymphocytes # 0.4 K/mcL (0.6-4.6); Lymphocytes % 3.5 %; Mean Corpuscular HGB Conc 30.1 g/dL (31.6-35.5); Mean Corpuscular Hemoglobin 30.7 pg (28.0-33.3); Mean Corpuscular Volume 101.9 fL (83.0-100.0); Mean Platelet Volume 12.2 fL (9.4-12.4); Monocytes # 0.5 K/mcL (0.0-1.3); Monocytes % 4.5 %; Nucleated Red Blood Cells 0.9 /100 WBC (0); Platelet Count 184 K/mcL (140-400); Red Blood Count 2.61 M/mcL (4.19-5.50); Red Cell Distribution Width 16.3 % (11.5-14.5); Segmented Neutrophils % 90.2 %; White Blood Count 11.7 K/mcL (4.3-11.1)
[2020-10-22 02:41] LABS: Neutrophils # 10.6 K/mcL (1.6-8.9)
[2020-10-22 02:42] LABS: VBG Ionized Calcium 0.97 mmol/L (1.15-1.35)
[2020-10-22 02:56] LABS: Burr Cells 2+ (Not Present)
[2020-10-22 02:57] LABS: Poikilocytosis 1+ (Not Present)
[2020-10-22 02:59] LABS: Acanthocytes 2+ (Not Present); Platelet Estimate Normal (Normal)
[2020-10-22] MEDS: Phenylephrine 50 MG in 0.9 % Sodium Chloride 250 ML IVC SCH ×2 (03:21→22:54)
[2020-10-22] MEDS: Ipratropium 1 PUFF INHALER IH SCH ×4 (03:49→22:05)
[2020-10-22 05:40] LABS: Alanine Aminotransferase 4353 Units/L (7-52); Albumin 3.6 g/dL (3.5-5.7); Albumin/Globulin Ratio 1.2 (1.1-2.2); Alkaline Phosphatase 42 Units/L (34-104); Aspartate Amino Transferase > 3000 Units/L (13-39); BUN/Creatinine Ratio 18 (6-26); Bilirubin,Direct 1.1 mg/dL (0.0-0.2); Bilirubin,Indirect 0.6 mg/dL (0.0-1.0); Bilirubin,Total 1.7 mg/dL (0.3-1.0); Blood Urea Nitrogen 73 mg/dL (8-23); Calcium 7.8 mg/dL (8.6-10.3); Carbon Dioxide 13 mEq/L (23-29); Chloride 102 mEq/L (98-107); Globulin 2.9 g/dL (2.4-3.5); Glucose 110 mg/dL (70-105); Magnesium 2.5 mg/dL (1.6-2.6); Osmolality,Calculated 310 (280-300); Phosphorous 11.7 mg/dL (2.7-4.5); Potassium 6.7 mEq/L (3.5-5.1); Sodium 139 mEq/L (136-145); Total Protein 6.5 g/dL (6.4-8.9); eGFR For African Americans 18 (> 60); eGFR For Non-African Americans 15 (> 60)
[2020-10-22] MEDS ORDERED: Calcium Chloride 2,000 MG in 0.9 % Sodium Chloride 100 ML IVPB ONE ×2 (05:58→21:14)
[2020-10-22 06:17] LABS: ABG Base Excess -16 mEq/L (-2 to 3); ABG HCO3 11 mEq/L (21-27); ABG Oxygen Saturation 94 % (95-98); ABG PCO2 29 mmHg (35-45); ABG PO2 86 mmHg (85-104); ABG TCO2 12 mEq/L (20-26); Blood Gas Pressure Support 6 cm H2O
[2020-10-22] MEDS: Amiodarone Premix 360 MG/200 ML BAG IVC SCH ×2 (06:30→20:05)
[2020-10-22 06:31] LABS: Activated Partial Thrombo Time 56.3 Seconds (26.0-36.0)
[2020-10-22 06:43] LABS: INR 3.2; Prothrombin Time 35.9 Seconds (9.4-12.1)
[2020-10-22] MEDS ORDERED: Calcium Gluconate 1gm/50mL 1 GM/50 ML BAG IVPB PRN ×2 (07:52)
[2020-10-22] MEDS ORDERED: *HR* Heparin 5,000 UNIT/ML VIAL IVP PRN (07:52)
[2020-10-22] MEDS ORDERED: 0.9 % Sodium Chloride 1,000 ML ONE (07:53)
[2020-10-22] MEDS ORDERED: Azithromycin 500 MG VIAL ONE (07:54)
[2020-10-22] MEDS ORDERED: 0.9 % Sodium Chloride 1,000 ML PRIME SCH (08:00)
[2020-10-22] MEDS ORDERED: Calcium Chloride 4,000 MG in 0.9 % Sodium Chloride 1,000 ML CRRT SCH (08:00)
[2020-10-22] MEDS: cefTRIAXone 1,000 MG in Water for inj. (sterile) 10 ML IVP SCH (08:00)
[2020-10-22] MEDS: Azithromycin 500 MG in 0.9 % Sodium Chloride 250 ML IVPB SCH (08:01)
[2020-10-22] MEDS: Dexamethasone Sodium Phos/PF 10 MG/ML VIAL IVP SCH (08:01)
[2020-10-22] MEDS: Loratadine 10 MG TABLET PO SCH (08:02)
[2020-10-22] MEDS: Pantoprazole 40 MG VIAL IVP SCH (08:02)
[2020-10-22] MEDS: PrismaSATE BGK 4/2.5 5,000 ML CRRT SCH ×6 (09:50→20:05)
[2020-10-22] MEDS ORDERED: D5 IVC ONE ×2 (10:00→11:20)
[2020-10-22] MEDS ORDERED: ACETYLCYSTEINE IVC ONE ×2 (10:00→11:20)
[2020-10-22] MEDS ORDERED: WATER IVC ONE ×2 (10:00→11:20)
[2020-10-22] MEDS: Sodium Bicarbonate 150 MEQ in Water for inj. (sterile) 1,000 ML IVC SCH ×3 (12:29→23:01)
[2020-10-22] MEDS: Cefepime HCl 2,000 MG in Water for inj. (sterile) 20 ML IVP SCH ×2 (12:33→21:58)
[2020-10-22] MEDS: Norepinephrine 4 MG/254 ML IV.SOLN IVC SCH ×2 (13:00→18:14)
[2020-10-22 15:14] LABS: Calcium 7.4 mg/dL (8.6-10.3); Potassium 5.7 mEq/L (3.5-5.1)
[2020-10-22] MEDS: Dexmedetomidine HCl 400 MCG/100 ML MLS IVC SCH ×2 (15:28→19:41)
[2020-10-22] MEDS: WATER IVC SCH (16:34)
[2020-10-22] MEDS: D5 IVC SCH (16:34)
[2020-10-22] MEDS: ACETYLCYSTEINE IVC SCH (16:34)
[2020-10-22 19:34] LABS: INR 3.7; Prothrombin Time 41.8 Seconds (9.4-12.1)
[2020-10-22] MEDS: Heparin 25,000UNIT/250ML 1/2NS 25,000 UNIT/250 ML IV.SOLN IVC SCH ×2 (19:40→19:41)
[2020-10-22] MEDS ORDERED: 0.9 % Sodium Chloride 1,000 ML PRIME PRN (19:42)
[2020-10-22 20:16] LABS: Basophils % 0.1 %; Eosinophils % 0.1 %; Hematocrit 23.2 % (37.5-50.1); Immature Granulocytes % 1.7 % (0-4); Lymphocytes # 0.3 K/mcL (0.6-4.6); Lymphocytes % 2.2 %; Mean Corpuscular HGB Conc 30.2 g/dL (31.6-35.5); Mean Corpuscular Hemoglobin 30.6 pg (28.0-33.3); Mean Corpuscular Volume 101.3 fL (83.0-100.0); Mean Platelet Volume 12.7 fL (9.4-12.4); Monocytes # 0.5 K/mcL (0.0-1.3); Monocytes % 4.3 %; Nucleated Red Blood Cells 1.6 /100 WBC (0); Platelet Count 152 K/mcL (140-400); Red Blood Count 2.29 M/mcL (4.19-5.50); Red Cell Distribution Width 16.3 % (11.5-14.5); Segmented Neutrophils % 91.6 %
[2020-10-22 20:18] LABS: VBG Ionized Calcium 0.82 mmol/L (1.15-1.35)
[2020-10-22 20:32] LABS: Magnesium 2.2 mg/dL (1.6-2.6); Phosphorous 6.1 mg/dL (2.7-4.5)
[2020-10-22 20:33] LABS: Calcium 6.9 mg/dL (8.6-10.3); Potassium 4.9 mEq/L (3.5-5.1)
[2020-10-22 20:43] LABS: Platelet Estimate Normal (Normal)
[2020-10-22] MEDS ORDERED: 0.9 % Sodium Chloride 250 ML ONE (22:53)
[2020-10-23] MEDS: PrismaSATE BGK 4/2.5 5,000 ML CRRT SCH ×8 (01:01→15:46)
[2020-10-23] MEDS: Ipratropium 1 PUFF INHALER IH SCH ×4 (04:21→21:45)
[2020-10-23] MEDS: Insulin LISPRO 300 UNITS/3 ML VIAL SUBQ SCH ×3 (05:24→18:44)
[2020-10-23 05:42] LABS: VBG Ionized Calcium 0.93 mmol/L (1.15-1.35)
[2020-10-23 05:53] LABS: INR 3.8
[2020-10-23 05:56] LABS: Activated Partial Thrombo Time 39.7 Seconds (26.0-36.0)
[2020-10-23 06:19] LABS: Basophils % 0.2 %; Hematocrit 23.2 % (37.5-50.1); Hemoglobin 7.4 g/dL (12.9-16.9); Lymphocytes # 0.4 K/mcL (0.6-4.6); Lymphocytes % 3.4 %; Mean Corpuscular HGB Conc 31.9 g/dL (31.6-35.5); Mean Corpuscular Hemoglobin 29.8 pg (28.0-33.3); Mean Corpuscular Volume 93.5 fL (83.0-100.0); Mean Platelet Volume 11.9 fL (9.4-12.4); Monocytes # 0.8 K/mcL (0.0-1.3); Monocytes % 6.1 %; Neutrophils # 11.3 K/mcL (1.6-8.9); Nucleated Red Blood Cells 1.9 /100 WBC (0); Platelet Count 147 K/mcL (140-400); Red Blood Count 2.48 M/mcL (4.19-5.50); Red Cell Distribution Width 16.3 % (11.5-14.5); Segmented Neutrophils % 88.3 %; White Blood Count 12.8 K/mcL (4.3-11.1)
[2020-10-23] MEDS ORDERED: Calcium Chloride 2,000 MG in 0.9 % Sodium Chloride 100 ML IVPB ONE ×2 (06:30→19:45)
[2020-10-23 06:33] LABS: Alanine Aminotransferase > 5000 Units/L (7-52); Albumin 3.3 g/dL (3.5-5.7); Albumin/Globulin Ratio 1.6 (1.1-2.2); Alkaline Phosphatase 88 Units/L (34-104); Aspartate Amino Transferase > 3000 Units/L (13-39); BUN/Creatinine Ratio 23 (6-26); Bilirubin,Direct 1.8 mg/dL (0.0-0.2); Bilirubin,Indirect 0.9 mg/dL (0.0-1.0); Bilirubin,Total 2.7 mg/dL (0.3-1.0); Blood Urea Nitrogen 53 mg/dL (8-23); Calcium 7.4 mg/dL (8.6-10.3); Carbon Dioxide 22 mEq/L (23-29); Chloride 101 mEq/L (98-107); Globulin 2.1 g/dL (2.4-3.5); Glucose 173 mg/dL (70-105); Magnesium 2.2 mg/dL (1.6-2.6); Osmolality,Calculated 307 (280-300); Phosphorous 4.5 mg/dL (2.7-4.5); Potassium 4.5 mEq/L (3.5-5.1); Sodium 139 mEq/L (136-145); Total Protein 5.4 g/dL (6.4-8.9); eGFR For African Americans 33 (> 60); eGFR For Non-African Americans 27 (> 60)
[2020-10-23] MEDS ORDERED: Octreotide 400 MCG in 0.9 % Sodium Chloride 100 ML IVC SCH (07:00)
[2020-10-23] MEDS: Pantoprazole 40 MG in 0.9 % Sodium Chloride Mini Bag 100 ML IVC SCH ×4 (07:21→19:27)
[2020-10-23] MEDS: Dexamethasone Sodium Phos/PF 10 MG/ML VIAL IVP SCH (07:22)
[2020-10-23] MEDS: Loratadine 10 MG TABLET PO SCH (07:22)
[2020-10-23] MEDS: Sodium Bicarbonate 150 MEQ in Water for inj. (sterile) 1,000 ML IVC SCH ×2 (07:22→18:02)
[2020-10-23] MEDS: Amiodarone Premix 360 MG/200 ML BAG IVC SCH (08:29)
[2020-10-23] MEDS ORDERED: 0.9 % Sodium Chloride 250 ML ONE (08:35)
[2020-10-23] MEDS: Norepinephrine 4 MG/254 ML IV.SOLN IVC SCH ×4 (09:12→18:44)
[2020-10-23] MEDS: Cefepime HCl 2,000 MG in Water for inj. (sterile) 20 ML IVP SCH (10:13)
[2020-10-23] MEDS: WATER IVC SCH (13:34)
[2020-10-23] MEDS: D5 IVC SCH (13:34)
[2020-10-23] MEDS: ACETYLCYSTEINE IVC SCH (13:34)
[2020-10-23 13:58] LABS: Hematocrit 17.8 % (37.5-50.1)
[2020-10-23 14:11] LABS: VBG Ionized Calcium 0.98 mmol/L (1.15-1.35)
[2020-10-23 14:14] LABS: Hemoglobin 5.7 g/dL (12.9-16.9)
[2020-10-23] MEDS ORDERED: 0.9 % Sodium Chloride 1,000 ML ONE (14:40)
[2020-10-23] MEDS ORDERED: Metoclopramide 10 MG/2 ML VIAL IVP ONE (14:59)
[2020-10-23] MEDS ORDERED: *HR* FentaNYL (PF) 100 MCG/2 ML VIAL ONE (15:57)
[2020-10-23] MEDS ORDERED: *HR* Midazolam HCl 5 MG/5 ML VIAL IVP ONE (15:58)
[2020-10-23] MEDS ORDERED: *HR* Midazolam HCl 2 MG/2 ML VIAL IVP ONE (17:44)
[2020-10-23] MEDS ORDERED: *HR* FentaNYL (PF) 100 MCG/2 ML VIAL IVP ONE (17:44)
[2020-10-23 18:43] VITALS: O2SAT 93
[2020-10-23 18:44] LABS: Hemoglobin 7.2 g/dL (12.9-16.9)
[2020-10-23] MEDS: Heparin 25,000UNIT/250ML 1/2NS 25,000 UNIT/250 ML IV.SOLN IVC SCH (18:46)
[2020-10-23] MEDS: Dexmedetomidine HCl 400 MCG/100 ML MLS IVC SCH (19:25)
[2020-10-23] MEDS ORDERED: Norepinephrine 8 MG/258 ML IV.SOLN IVC SCH (19:45)
[2020-10-23] MEDS ORDERED: Isovue-370 500 ML BOTTLE IVP ONE (19:52)
[2020-10-23 20:06] VITALS: BP 96/45; PULSE 95; TEMP 98.5
[2020-10-23] MEDS ORDERED: *HR* Atropine Sulfate 1 MG/10 ML SYRINGE ONE (21:03)
[2020-10-23 22:00] LABS: INR 2.8; Prothrombin Time 31.5 Seconds (9.4-12.1)
[2020-10-23] MEDS ORDERED: EPINEPHrine 1 MG in D5% in Water 250 ML IVC SCH (22:00)
[2020-10-23 22:04] LABS: Activated Partial Thrombo Time 107.1 Seconds (26.0-36.0)
[2020-10-23] MEDS ORDERED: *HR* EPINEPHrine 1 MG/10 ML SYRINGE ONE (22:06)
[2020-10-24] MEDS ORDERED: Pantoprazole 40 MG VIAL IVP SCH (06:00)
== END 2020-10-23 22:14 | disposition expired | DRG 871 ==
LOC: 2NENU → SUATTDRO 17:26 → 2NNU 23:00 → ICNU 10-20 12:13
PROVIDERS: ADMIT Pharmacist; ATTEND Pharmacist